=== PATIENT | male | born 1980 | race Two or more races ===

== ENCOUNTER 2019-09-22 17:32 | Emergency (ER) | payer OTHER ==
[2019-09-22 17:38] VITALS: BP 102/72; PULSE 62; TEMP 97.9; BMI 29.9
--- NOTE | 2019-09-22 17:40 | PDOC ---
Rapid Medical Evaluation Time Seen by Provider: 09/22/19 17:34 Medical Evaluation: 09/22/19 17:35 I performed a brief in-person evaluation of this patient. Pt is a 39 y/o male who presents to the ED with complaint of R knee pain for the last 2 weeks. He denies any known injury. He states he was standing outside and his knee gave out, causing severe R knee pain. The patient states he had an xray with his primary doctor 3 days ago. Pertinent physical exam findings: normal straight leg raise, EHL intact I have ordered the following: R knee xray Patient to proceed to ED for further evaluation. Discharge Disposition - Diagnosis Right knee pain - Referrals - Patient Instructions - Post Discharge Activity
[2019-09-22] MEDS ORDERED: KETOROLAC TROMETHAMINE 30 MG/1 ML VIAL IM ONE (18:27)
--- NOTE | 2019-09-22 18:28 | PDOC ---
History of Present Illness - General Chief Complaint: Injury Stated Complaint: PAIN/RIGHT PATELLA Time Seen by Provider: 09/22/19 17:34 History Source: Patient Exam Limitations: No Limitations - History of Present Illness Initial Comments: 09/22/19 19:21 CHIEF COMPLAINT: Knee pain HISTORY OF PRESENT ILLNESS: This is a 39-year-old male with a history of EtOH abuse (states he has cut back significantly to 3 glasses of wine daily), opiate abuse on methadone, hypertriglyceridemia, and pancreatitis resulting in multiple ICU admissions who presents complaining of two weeks of right knee pain. He does not remember any specific injury, but states that he is very active. He has been ambulating with a cane from home. Vital signs on arrival are unremarkable. REVIEW OF SYSTEMS: GENERAL/CONSTITUTIONAL: No fever or chills. No weakness. HEAD, EYES, EARS, NOSE AND THROAT: No change in vision. No change in hearing. No sore throat. CARDIOVASCULAR: Reports chest pain. No shortness of breath. RESPIRATORY: Denies cough, hemoptysis. MUSCULOSKELETAL: See HPI. SKIN: No rashes or lesions. NEUROLOGIC: No headache, vertigo, loss of consciousness, or change in strength/sensation. ALLERGIC/IMMUNOLOGIC: No hives or skin allergy. PHYSICAL EXAM: GENERAL: Awake, alert, and oriented to person/place/time, in no acute distress. HEAD: No signs of trauma, normocephalic, atraumatic. No epistaxis. EYES: PERRLA, EOMI, sclera anicteric, conjunctiva clear. LUNGS: No distress, speaks in full sentences, clear to auscultation bilaterally. HEART: Regular rate and rhythm, normal S1 and S2, no murmurs appreciated, peripheral pulses normal and equal bilaterally. ABDOMEN: Soft, nontender, normoactive bowel sounds. No guarding, no rebound. No masses. EXTREMITIES: Right knee with mild tenderness medially. Able to flex to 90 degrees. Able to straighten completely, although this causes pain. Negative anterior drawer sign. Able to bear partial weight. NEUROLOGICAL: Cranial nerves II through XII grossly intact. Normal speech, normal gait, no focal sensorimotor deficits. SKIN: Warm, dry, normal turgor. Past History - Medical History Allergies/Adverse Reactions: Allergies Allergy/AdvReac Type Severity Reaction Status Date / Time No Known Allergies Allergy Verified 09/22/19 17:35 Home Medications: Ambulatory Orders Mirtazapine 15 mg PO HS #30 tablet 04/17/19 Sertraline HCl [Zoloft -] 50 mg PO DAILY #30 tablet 04/17/19 Quetiapine Fumarate [Seroquel -] 50 mg PO HS #14 tablet 06/27/19 Sertraline HCl [Zoloft] 100 mg PO DAILY #30 tablet 06/27/19 hydrOXYzine PAMOATE [Vistaril -] 25 mg PO Q8H PRN #60 capsule 06/27/19 traZODone HCL [Trazodone HCl] 100 mg PO HS #30 tablet 06/27/19 Sertraline HCl [Zoloft -] 50 mg PO DAILY #21 tablet 07/25/19 Sertraline HCl [Zoloft] 100 mg PO DAILY #21 tablet 07/25/19 Trazodone HCl 150 mg PO HS #21 tablet 07/25/19 hydrOXYzine PAMOATE [Vistaril -] 50 mg PO BID PRN #42 capsule 07/25/19 Quetiapine Fumarate [Seroquel -] 100 mg PO HS #30 tablet 08/15/19 Sertraline HCl [Zoloft] 100 mg PO DAILY #60 tablet 08/15/19 hydrOXYzine PAMOATE [Vistaril -] 50 mg PO BID PRN #60 capsule 08/15/19 traZODone HCL [Trazodone HCl] 100 mg PO HS #30 tablet 08/15/19 Quetiapine Fumarate [Seroquel -] 50 mg PO HS #30 tablet 09/12/19 Quetiapine Fumarate [Seroquel -] 100 mg PO HS #30 tablet 09/12/19 Sertraline HCl [Zoloft] 100 mg PO DAILY #60 tablet 09/12/19 hydrOXYzine PAMOATE [Vistaril -] 50 mg PO BID #60 capsule 09/12/19 traZODone HCL [Trazodone HCl] 100 mg PO HS #30 tablet 09/12/19 - Psycho-Social/Smoking History Smoking History: Current every day smoker Have you smoked in the past 12 months: Yes Number of Cigarettes Smoked Daily: 20 Cigars Per Day: 0 Information on smoking cessation initiated: Yes - Substance Abuse Hx (Audit-C & DAST Scrn) How often the patient has a drink containing alcohol: 2-3 times / week Number of drinks the patient has on a typical day: 1 or 2 How often the patient has six or more drinks on one occasion: Never Score: In Men: 4 or > Positive; In Women: 3 or > Positive: 3 Screen Result (Pos requires Nsg. Audit-10AR): Negative In the last yr the pt used illegal drug/Rx for NonMed reason: No Score: Yes response is considered Positive: 0 Screen Result (Positive result requires Nsg. DAST-10): Negative *Physical Exam - Vital Signs Last Vital Signs Temp Pulse Resp BP Pulse Ox 97.9 F 62 18 102/72 100 09/22/19 17:35 09/22/19 17:35 09/22/19 17:35 09/22/19 17:35 09/22/19 17:35 Medical Decision Making - Medical Decision Making 09/22/19 19:25 A/P: 39-year-old male with knee pain. -XR wet read: no acute fracture or effusion -Toradol 30mg IM given without relief -2 tabs Percocet given with relief of pain -Knee immobilizer placed, crutches given -Orthopedics referral given -Followup instructions and return precautions reviewed Discharge - Discharge Information Problems reviewed: No Clinical Impression/Diagnosis: Right knee pain Condition: Stable Disposition: HOME - Admission No - Follow up/Referral Referrals: Anson Sutton MD [Primary Care Provider] - Myles Harding MD [Staff Physician] - 2 Days (Orthopedics) - Patient Discharge Instructions Additional Instructions: -Take ibuprofen 400mg every 6 hrs with food as needed for pain -Apply ice for 15 minutes at a time 5 times a day -Wear the immobilizer (you may remove it to shower and also to sleep if more comfortable) and use crutches to minimize weight-bearing -Rest with your knee elevated -Call orthopedics and request an appointment -Return here for any new or concerning symptoms - Post Discharge Activity
[2019-09-22] MEDS ORDERED: KETOROLAC TROMETHAMINE 30 MG/1 ML VIAL ONE (18:38)
== END 2019-09-22 19:26 | disposition home or self-care (01) ==
LOC: JERFT 17:32
PROC: 3E0233Z Introduction of Anti-inflammatory into Muscle, Percutaneous Approach (ICD-10-PCS; principal; 2019-09-22)
DX: M25.561 Pain in right knee (principal)
CPT/HCPCS: 73562-TC-RT-FY; 99284-25

== ENCOUNTER 2019-09-25 13:47 | Emergency (ER) | payer OTHER ==
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
[2019-09-25 14:05] VITALS: BP 111/78; PULSE 81; TEMP 97; BMI 29.9
[2019-09-25] MEDS ORDERED: KETOROLAC TROMETHAMINE 60 MG/2 ML VIAL IM ONE (14:08)
[2019-09-25] MEDS ORDERED: KETOROLAC TROMETHAMINE 60 MG/2 ML VIAL ONE (14:09)
--- NOTE | 2019-09-25 14:12 | PDOC ---
History of Present Illness - General Chief Complaint: Bone Injury Stated Complaint: REVISIT Time Seen by Provider: 09/25/19 13:54 - History of Present Illness Initial Comments: 09/25/19 14:09 39-year-old male presents for evaluation of right knee pain seen 2 weeks ago for similar problem he has yet to follow-up with subspecialist Past History - Medical History Allergies/Adverse Reactions: Allergies Allergy/AdvReac Type Severity Reaction Status Date / Time No Known Allergies Allergy Verified 09/25/19 13:53 Home Medications: Ambulatory Orders Mirtazapine 15 mg PO HS #30 tablet 04/17/19 Sertraline HCl [Zoloft -] 50 mg PO DAILY #30 tablet 04/17/19 Quetiapine Fumarate [Seroquel -] 50 mg PO HS #14 tablet 06/27/19 Sertraline HCl [Zoloft] 100 mg PO DAILY #30 tablet 06/27/19 hydrOXYzine PAMOATE [Vistaril -] 25 mg PO Q8H PRN #60 capsule 06/27/19 traZODone HCL [Trazodone HCl] 100 mg PO HS #30 tablet 06/27/19 Sertraline HCl [Zoloft -] 50 mg PO DAILY #21 tablet 07/25/19 Sertraline HCl [Zoloft] 100 mg PO DAILY #21 tablet 07/25/19 Trazodone HCl 150 mg PO HS #21 tablet 07/25/19 hydrOXYzine PAMOATE [Vistaril -] 50 mg PO BID PRN #42 capsule 07/25/19 Quetiapine Fumarate [Seroquel -] 100 mg PO HS #30 tablet 08/15/19 Sertraline HCl [Zoloft] 100 mg PO DAILY #60 tablet 08/15/19 hydrOXYzine PAMOATE [Vistaril -] 50 mg PO BID PRN #60 capsule 08/15/19 traZODone HCL [Trazodone HCl] 100 mg PO HS #30 tablet 08/15/19 Quetiapine Fumarate [Seroquel -] 50 mg PO HS #30 tablet 09/12/19 Quetiapine Fumarate [Seroquel -] 100 mg PO HS #30 tablet 09/12/19 Sertraline HCl [Zoloft] 100 mg PO DAILY #60 tablet 09/12/19 hydrOXYzine PAMOATE [Vistaril -] 50 mg PO BID #60 capsule 09/12/19 traZODone HCL [Trazodone HCl] 100 mg PO HS #30 tablet 09/12/19 COPD: No - Psycho-Social/Smoking History Smoking History: Current every day smoker Have you smoked in the past 12 months: Yes Number of Cigarettes Smoked Daily: 20 Cigars Per Day: 0 Information on smoking cessation initiated: No - Substance Abuse Hx (Audit-C & DAST Scrn) How often the patient has a drink containing alcohol: 2-3 times / week Number of drinks the patient has on a typical day: 3 or 4 How often the patient has six or more drinks on one occasion: Monthly Score: In Men: 4 or > Positive; In Women: 3 or > Positive: 6 Screen Result (Pos requires Nsg. Audit-10AR): Positive In the last yr the pt used illegal drug/Rx for NonMed reason: No Score: Yes response is considered Positive: 0 Screen Result (Positive result requires Nsg. DAST-10): Negative Review of Systems - Review of Systems Constitutional: No: Fever Musculoskeletal: Yes: Joint Pain *Physical Exam - Vital Signs Last Vital Signs Temp Pulse Resp BP Pulse Ox 97.0 F L 81 20 111/78 100 09/25/19 13:55 09/25/19 13:55 09/25/19 13:55 09/25/19 13:55 09/25/19 13:55 - Physical Exam 09/25/19 14:10 Right knee skin color and temperature normal range of motion is decreased 0 to 45 degrees beyond that causes pain. Minimal intra-articular effusion. Diffuse nonspecific tenderness at a proportion to the examination no instability or gross sensorimotor deficits normal hip and ankle range of motion thigh and calf soft nontender neurovascular intact Medical Decision Making - Medical Decision Making 09/25/19 14:10 Patient is requesting a shot of Toradol. We will give him orthopedic surgery follow-up most likely exacerbation of osteoarthritis. I have reviewed the pathophysiology with the patient. They are in agreement with the treatment plan all questions were answered to their satisfaction. Understanding for follow-up without fail was also conveyed to the patient. Again they are in agreement. Discharge - Discharge Information Problems reviewed: Yes Clinical Impression/Diagnosis: Right knee pain Condition: Stable Disposition: HOME - Admission No - Follow up/Referral Referrals: Anson Sutton MD [Primary Care Provider] - Jaya Roper DO [Staff Physician] - - Patient Discharge Instructions Additional Instructions: Tylenol Motrin as directed for pain. You were given an injection of a long- acting anti-inflammatory in the emergency room today. Do not take any anti- inflammatories until tomorrow at this time. You may continue to take Tylenol as directed. Return to the emergency room for worsening symptoms and without fail follow-up with orthopedic surgery in 1 to 2 days for further evaluation and treatment options. - Post Discharge Activity
== END 2019-09-25 14:18 | disposition home or self-care (01) ==
LOC: JER 13:47
PROC: 3E0233Z Introduction of Anti-inflammatory into Muscle, Percutaneous Approach (ICD-10-PCS; principal; 2019-09-25)
DX: M25.561 Pain in right knee (principal)
CPT/HCPCS: 99284-25

== ENCOUNTER 2021-01-19 08:46 | Inpatient (IN) | payer OTHER ==
[2021-01-19] MEDS ORDERED: ONDANSETRON *ODT* 4 MG TABLET SL PRN (09:18)
[2021-01-19] MEDS ORDERED: MAGNESIUM CITRATE 300 ML BOTTLE PO PRN (09:18)
[2021-01-19] MEDS ORDERED: diazePAM 5 MG TABLET PO PRN (09:18)
[2021-01-19] MEDS ORDERED: MAG HYDROX/AL HYDROX/SIMETH 30 ML UNIT-DOSE CUP PO PRN (09:18)
[2021-01-19] MEDS ORDERED: MAGNESIUM HYDROX 2400MG/30ML ORAL SUSPENSION 30 ML CUP PO PRN (09:18)
[2021-01-19] MEDS ORDERED: ACETAMINOPHEN 325 MG TABLET (FP) PO PRN ×2 (09:18)
[2021-01-19] MEDS ORDERED: MENTHOL/PHENOL 1 EACH UD MM PRN (09:18)
[2021-01-19] MEDS ORDERED: BISMUTH SUBSALICYLATE 524 MG/30 ML PO PRN (09:18)
[2021-01-19 09:25] VITALS: BMI 35.9
[2021-01-19] MEDS ORDERED: hydrOXYzine PAMOATE 25 MG CAPSULE (FP) PO SCH (10:00)
[2021-01-19] MEDS: PRENATAL VITAMINS W/ FOLIC ACID TABLET (FP) PO SCH (10:47)
[2021-01-19] MEDS: NICOTINE 14 MG/24 HOURS TOPICAL PATCH TD SCH (10:48)
[2021-01-19] MEDS: diazePAM 5 MG TABLET PO SCH ×3 (10:48→22:08)
[2021-01-19] MEDS: NICOTINE 10 MG CARTRIDGE (INHALER) IH PRN (10:48)
[2021-01-19 15:08] LABS: HEMATOCRIT 38.8 % (35.4-49); HEMOGLOBIN 13.3 GM/dL (11.7-16.9); MCH 34.9 pg (25.7-33.7); MCHC 34.2 g/dl (32.0-35.9); MEAN CELL VOLUME 101.9 fl (80-96); MEAN PLT VOLUME 7.9 fl (7.5-11.1); PLATELET COUNT 249 10^3/uL (134-434); RDW 13.6 % (11.9-15.9); WHITE BLOOD COUNT 8.4 K/mm3 (4.0-10.0)
[2021-01-19 16:03] LABS: CREATININE 0.9 mg/dL (0.55-1.3)
[2021-01-19 16:04] LABS: ALBUMIN 3.8 g/dl (3.4-5.0); BILIRUBIN,TOTAL 0.6 mg/dL (0.2-1); CALCIUM 8.4 mg/dL (8.5-10.1)
[2021-01-19 16:05] LABS: TOT PROT 7.8 g/dl (6.4-8.2)
[2021-01-19] MEDS: hydrOXYzine PAMOATE 50 MG CAPSULE (FP) PO PRN (17:48)
[2021-01-19] MEDS ORDERED: MELATONIN 5 MG TABLETS PO SCH (22:00)
[2021-01-19] MEDS: THIAMINE HCL 100 MG TABLET (FP) PO SCH (22:08)
[2021-01-19] MEDS: QUEtiapine FUMARATE 100 MG TABLET (FP) PO SCH (22:08)
[2021-01-20] MEDS: diazePAM 5 MG TABLET PO SCH ×4 (05:46→22:18)
[2021-01-20] MEDS: NICOTINE 10 MG CARTRIDGE (INHALER) IH PRN (05:48)
[2021-01-20] MEDS: hydrOXYzine PAMOATE 50 MG CAPSULE (FP) PO PRN ×3 (05:48→22:19)
[2021-01-20] MEDS ORDERED: methaDONE HCL 10 MG TABLET ONE (09:18)
[2021-01-20] MEDS ORDERED: methaDONE HCL 40 MG DISPERSABLE TABLET ONE (09:19)
[2021-01-20] MEDS ORDERED: methaDONE HCL 40 MG DISPERSABLE TABLET PO SCH (10:00)
[2021-01-20] MEDS ORDERED: methaDONE HCL 10 MG TABLET PO ONE (10:00)
[2021-01-20] MEDS: PRENATAL VITAMINS W/ FOLIC ACID TABLET (FP) PO SCH (10:19)
[2021-01-20] MEDS: NICOTINE 14 MG/24 HOURS TOPICAL PATCH TD SCH (10:19)
[2021-01-20] MEDS: THIAMINE HCL 100 MG TABLET (FP) PO SCH (22:18)
[2021-01-20] MEDS: QUEtiapine FUMARATE 100 MG TABLET (FP) PO SCH (22:18)
[2021-01-20] MEDS: METHOCARBAMOL 500 MG TABLET PO PRN (22:19)
[2021-01-21] MEDS ORDERED: methaDONE HCL 40 MG DISPERSABLE TABLET ONE (04:56)
[2021-01-21] MEDS ORDERED: methaDONE HCL 10 MG TABLET ONE (04:56)
[2021-01-21] MEDS: diazePAM 5 MG TABLET PO SCH ×3 (05:54→22:17)
[2021-01-21] MEDS: hydrOXYzine PAMOATE 50 MG CAPSULE (FP) PO PRN ×4 (05:56→22:17)
[2021-01-21] MEDS: NICOTINE 10 MG CARTRIDGE (INHALER) IH PRN (07:04)
[2021-01-21] MEDS: PRENATAL VITAMINS W/ FOLIC ACID TABLET (FP) PO SCH (10:16)
[2021-01-21] MEDS: NICOTINE 14 MG/24 HOURS TOPICAL PATCH TD SCH (10:17)
[2021-01-21] MEDS: IBUPROFEN 400 MG TABLET (FP) PO PRN (20:03)
[2021-01-21] MEDS: QUEtiapine FUMARATE 100 MG TABLET (FP) PO SCH (22:17)
[2021-01-21] MEDS: METHOCARBAMOL 500 MG TABLET PO PRN (22:17)
[2021-01-21] MEDS: THIAMINE HCL 100 MG TABLET (FP) PO SCH (22:17)
[2021-01-22] MEDS ORDERED: methaDONE HCL 10 MG TABLET ONE (04:11)
[2021-01-22] MEDS ORDERED: methaDONE HCL 40 MG DISPERSABLE TABLET ONE (04:12)
[2021-01-22] MEDS ORDERED: diazePAM 5 MG TABLET PO SCH (06:00)
[2021-01-22 06:14] VITALS: PULSE 85
[2021-01-22] MEDS: IBUPROFEN 400 MG TABLET (FP) PO PRN (06:27)
[2021-01-22] MEDS: hydrOXYzine PAMOATE 50 MG CAPSULE (FP) PO PRN (06:30)
[2021-01-22 10:19] VITALS: BP 115/70; TEMP 97.1
[2021-01-22] MEDS: NICOTINE 14 MG/24 HOURS TOPICAL PATCH TD SCH (10:26)
[2021-01-22] MEDS: METHOCARBAMOL 500 MG TABLET PO PRN (10:26)
[2021-01-22] MEDS: PRENATAL VITAMINS W/ FOLIC ACID TABLET (FP) PO SCH (10:26)
[2021-01-23] MEDS ORDERED: diazePAM 5 MG TABLET PO ONE (06:00)
== END 2021-01-22 11:16 | disposition home or self-care (01) | DRG 775 ==
LOC: YASAS 08:46 → Y6N 09:53
PROVIDERS: ADMIT Allergy & Immunology; ATTEND Allergy & Immunology
PROC: HZ2ZZZZ Detoxification Services for Substance Abuse Treatment (ICD-10-PCS; principal; 2021-01-19)
DX: F10.230 Alcohol dependence with withdrawal, uncomplicated (principal); F10.24 Alcohol dependence with alcohol-induced mood disorder; F10.282 Alcohol dependence with alcohol-induced sleep disorder; F10.280 Alcohol dependence with alcohol-induced anxiety disorder; F17.210 Nicotine dependence, cigarettes, uncomplicated; F43.10 Post-traumatic stress disorder, unspecified; F41.9 Anxiety disorder, unspecified; F32.A Depression, unspecified; E78.5 Hyperlipidemia, unspecified; R74.01 Elevation of levels of liver transaminase levels; Z86.69 Personal history of other diseases of the nervous system and sense organs
CPT/HCPCS: 36415; 80053; 85027; 86780; C9803; U0003; U0005

== ENCOUNTER 2021-03-11 17:12 | Inpatient (IN) | payer OTHER ==
[2021-03-11] MEDS ORDERED: MAGNESIUM CITRATE 300 ML BOTTLE PO PRN (20:22)
[2021-03-11] MEDS ORDERED: IBUPROFEN 400 MG TABLET (FP) PO PRN (20:22)
[2021-03-11] MEDS ORDERED: MAG HYDROX/AL HYDROX/SIMETH 30 ML UNIT-DOSE CUP PO PRN (20:22)
[2021-03-11] MEDS ORDERED: MENTHOL/PHENOL 1 EACH UD MM PRN (20:22)
[2021-03-11] MEDS ORDERED: ACETAMINOPHEN 325 MG TABLET (FP) PO PRN ×2 (20:22)
[2021-03-11] MEDS ORDERED: BISMUTH SUBSALICYLATE 524 MG/30 ML PO PRN (20:22)
[2021-03-11] MEDS ORDERED: MAGNESIUM HYDROX 2400MG/30ML ORAL SUSPENSION 30 ML CUP PO PRN (20:22)
[2021-03-11] MEDS ORDERED: ONDANSETRON *ODT* 4 MG TABLET SL PRN (20:22)
[2021-03-12] MEDS: THIAMINE HCL 100 MG TABLET (FP) PO SCH ×2 (05:41→22:21)
[2021-03-12] MEDS: MELATONIN 5 MG TABLETS PO SCH ×2 (05:41→22:21)
[2021-03-12] MEDS: diazePAM 5 MG TABLET PO SCH ×5 (05:42→22:22)
[2021-03-12] MEDS ORDERED: diazePAM 5 MG TABLET ONE (05:43)
[2021-03-12 08:53] VITALS: BMI 35.5
[2021-03-12] MEDS ORDERED: methaDONE HCL 10 MG TABLET PO SCH (09:30)
[2021-03-12] MEDS ORDERED: methaDONE HCL 40 MG DISPERSABLE TABLET ONE (09:56)
[2021-03-12] MEDS ORDERED: methaDONE HCL 10 MG TABLET ONE (09:56)
[2021-03-12 10:36] LABS: HEMATOCRIT 41.6 % (35.4-49); HEMOGLOBIN 13.7 GM/dL (11.7-16.9); MCH 33.9 pg (25.7-33.7); MEAN CELL VOLUME 102.8 fl (80-96); MEAN PLT VOLUME 8.3 fl (7.5-11.1); PLATELET COUNT 212 10^3/uL (134-434); RBC 4.04 M/mm3 (4.00-5.60); RDW 14.2 % (11.9-15.9); WHITE BLOOD COUNT 7.8 K/mm3 (4.0-10.0)
[2021-03-12] MEDS: PRENATAL VITAMINS W/ FOLIC ACID TABLET (FP) PO SCH (10:36)
[2021-03-12 10:38] LABS: ALBUMIN 3.8 g/dl (3.4-5.0); BLOOD UREA NITROGEN 8.8 mg/dL (7-18); CALCIUM 8.8 mg/dL (8.5-10.1)
[2021-03-12 10:41] LABS: CREATININE 0.9 mg/dL (0.55-1.3)
[2021-03-12 10:44] LABS: BILIRUBIN,TOTAL 1.2 mg/dL (0.2-1)
[2021-03-12] MEDS: diazePAM 5 MG TABLET PO PRN (14:11)
[2021-03-12] MEDS: hydrOXYzine PAMOATE 25 MG CAPSULE (FP) PO PRN ×2 (14:12→22:22)
[2021-03-12] MEDS: NICOTINE POLACRILEX 2 MG GUM BUC PRN ×2 (15:56→23:08)
[2021-03-12] MEDS: METHOCARBAMOL 500 MG TABLET PO PRN (17:39)
[2021-03-12] MEDS: QUEtiapine FUMARATE 100 MG TABLET (FP) PO SCH (22:21)
[2021-03-13] MEDS ORDERED: methaDONE HCL 40 MG DISPERSABLE TABLET ONE (04:41)
[2021-03-13] MEDS ORDERED: methaDONE HCL 10 MG TABLET ONE (04:41)
[2021-03-13] MEDS: diazePAM 5 MG TABLET PO SCH ×3 (06:10→22:06)
[2021-03-13] MEDS: PRENATAL VITAMINS W/ FOLIC ACID TABLET (FP) PO SCH (10:13)
[2021-03-13] MEDS: hydrOXYzine PAMOATE 25 MG CAPSULE (FP) PO PRN (10:13)
[2021-03-13] MEDS: METHOCARBAMOL 500 MG TABLET PO PRN ×2 (10:16→22:05)
[2021-03-13] MEDS: NICOTINE 10 MG CARTRIDGE (INHALER) IH PRN (11:00)
[2021-03-13] MEDS: THIAMINE HCL 100 MG TABLET (FP) PO SCH (22:05)
[2021-03-13] MEDS: MELATONIN 5 MG TABLETS PO SCH (22:05)
[2021-03-13] MEDS: QUEtiapine FUMARATE 100 MG TABLET (FP) PO SCH (22:06)
[2021-03-14] MEDS ORDERED: methaDONE HCL 10 MG TABLET ONE (04:23)
[2021-03-14] MEDS ORDERED: methaDONE HCL 40 MG DISPERSABLE TABLET ONE (04:24)
[2021-03-14] MEDS: diazePAM 5 MG TABLET PO SCH ×2 (05:44→17:52)
[2021-03-14] MEDS: NICOTINE 10 MG CARTRIDGE (INHALER) IH PRN (05:45)
[2021-03-14] MEDS: METHOCARBAMOL 500 MG TABLET PO PRN ×2 (07:40→17:54)
[2021-03-14] MEDS: diazePAM 5 MG TABLET PO PRN (10:31)
[2021-03-14] MEDS: PRENATAL VITAMINS W/ FOLIC ACID TABLET (FP) PO SCH (10:32)
[2021-03-14] MEDS: hydrOXYzine PAMOATE 25 MG CAPSULE (FP) PO PRN ×2 (10:33→22:12)
[2021-03-14] MEDS: THIAMINE HCL 100 MG TABLET (FP) PO SCH (22:12)
[2021-03-14] MEDS: QUEtiapine FUMARATE 100 MG TABLET (FP) PO SCH (22:12)
[2021-03-14] MEDS: MELATONIN 5 MG TABLETS PO SCH (22:12)
[2021-03-15] MEDS ORDERED: methaDONE HCL 40 MG DISPERSABLE TABLET ONE (04:22)
[2021-03-15] MEDS ORDERED: methaDONE HCL 10 MG TABLET ONE (04:22)
[2021-03-15] MEDS ORDERED: diazePAM 5 MG TABLET PO ONE (06:00)
[2021-03-15 09:11] VITALS: BP 116/67; PULSE 72; TEMP 96.9
== END 2021-03-15 09:35 | disposition home or self-care (01) | DRG 773 ==
LOC: YASAS 17:12 → Y3N 03-12 09:21
PROVIDERS: ADMIT Allergy & Immunology; ATTEND Allergy & Immunology
PROC: HZ2ZZZZ Detoxification Services for Substance Abuse Treatment (ICD-10-PCS; principal; 2021-03-12)
DX: F10.230 Alcohol dependence with withdrawal, uncomplicated (principal); F11.20 Opioid dependence, uncomplicated; F17.210 Nicotine dependence, cigarettes, uncomplicated
CPT/HCPCS: 36415; 80053; 85027; 86780; C9803; U0003; U0005

== ENCOUNTER 2022-05-03 11:45 | Inpatient (IN) | payer OTHER ==
[2022-05-03 12:19] VITALS: BMI 35.5
[2022-05-03] MEDS ORDERED: methaDONE HCL 10 MG TABLET (FOR DETOX USE ONLY) PO ONE (12:32)
[2022-05-03] MEDS ORDERED: methaDONE HCL 40 MG DISPERSABLE TABLET ONE (12:40)
[2022-05-03] MEDS ORDERED: methaDONE HCL 10 MG TABLET ONE (12:40)
[2022-05-03] MEDS ORDERED: SODIUM CHLORIDE 0.9% 1000 ML INFUS.BAG IV ONE (12:42)
[2022-05-03 13:07] LABS: BASO % 0.9 % (0-2.0); EOS % 1.1 % (0-4.5); HEMATOCRIT 32.3 % (35.4-49); LYMPH % 17.5 % (8-40); MCH 34.2 pg (25.7-33.7); MCHC 34.2 g/dl (32.0-35.9); MEAN CELL VOLUME 100.2 fl (80-96); MEAN PLT VOLUME 8.2 fl (7.5-11.1); MONO % 10.5 % (3.8-10.2); PLATELET COUNT 187 10^3/uL (134-434); RBC 3.22 M/mm3 (4.00-5.60); RDW 16.5 % (11.9-15.9); WHITE BLOOD COUNT 12.7 K/mm3 (4.0-10.0)
[2022-05-03 13:12] LABS: INR 1.46 (0.83-1.09); PROTHROMBIN TIME (PATIENT) 16.9 SEC (9.7-13.0)
[2022-05-03 13:15] LABS: ACTIVATED PTT 34.6 SECONDS (25.2-36.5)
[2022-05-03 13:26] LABS: ALBUMIN 2.9 g/dl (3.4-5.0)
[2022-05-03 13:27] LABS: CALCIUM 7.9 mg/dL (8.5-10.1); MAGNESIUM 1.5 mg/dL (1.8-2.4)
[2022-05-03 13:29] LABS: CREATININE 0.8 mg/dL (0.55-1.3)
[2022-05-03 13:31] LABS: TOT PROT 7.6 g/dl (6.4-8.2)
[2022-05-03] MEDS ORDERED: SODIUM CHLORIDE 1,000 ML IV STA (14:09)
[2022-05-03] MEDS ORDERED: ACETAMINOPHEN 1000 MG/100 ML BAG IVPB ONE (19:27)
[2022-05-03] MEDS ORDERED: ACETAMINOPHEN INJECTION 100 ML IVPB ONE (19:35)
[2022-05-04] MEDS ORDERED: KETOROLAC TROMETHAMINE 15 MG/ML VIAL ONE
[2022-05-04] MEDS: KETOROLAC TROMETHAMINE 15 MG/ML VIAL IVPUSH PRN ×3 (00:06→22:04)
[2022-05-04] MEDS: LACTATED RINGERS SOLUTION 1,000 ML/1,000 ML INFUS.BAG IV SCH ×3 (00:06→17:15)
[2022-05-04 02:22] VITALS: RESP 18
[2022-05-04] MEDS ORDERED: LORazepam 1 MG TABLET PO PRN (03:38)
[2022-05-04 05:22] LABS: BILIRUBIN,DIRECT 4.1 mg/dL (0.0-0.2)
[2022-05-04] MEDS: LORazepam 1 MG TABLET PO SCH ×2 (05:25→11:05)
[2022-05-04 09:22] LABS: BASO % 0.7 % (0-2.0); EOS % 2.5 % (0-4.5); HEMATOCRIT 25.3 % (35.4-49); HEMOGLOBIN 8.9 GM/dL (11.7-16.9); LYMPH % 22.9 % (8-40); MCH 36.3 pg (25.7-33.7); MCHC 35.3 g/dl (32.0-35.9); MEAN CELL VOLUME 102.9 fl (80-96); MONO % 10.2 % (3.8-10.2); NEUT % 63.7 % (42.8-82.8); PLATELET COUNT 130 10^3/uL (134-434); RBC 2.46 M/mm3 (4.00-5.60); RDW 16.3 % (11.9-15.9); WHITE BLOOD COUNT 9.9 K/mm3 (4.0-10.0)
[2022-05-04 10:07] LABS: BLOOD UREA NITROGEN 5.1 mg/dL (7-18)
[2022-05-04 10:10] LABS: CREATININE 0.2 mg/dL (0.55-1.3); PHOSPHOROUS 1.6 mg/dL (2.5-4.9)
[2022-05-04 10:48] LABS: CALCIUM 7.2 mg/dL (8.5-10.1); MAGNESIUM 1.3 mg/dL (1.8-2.4); TOT PROT 5.4 g/dl (6.4-8.2)
[2022-05-04] MEDS: FOLIC ACID 1 MG TABLET (FP) PO SCH (11:08)
[2022-05-04] MEDS: THIAMINE HCL 100 MG TABLET (FP) PO SCH (11:08)
[2022-05-05] MEDS ORDERED: LORazepam 1 MG TABLET PO SCH (05:00)
[2022-05-05] MEDS: KETOROLAC TROMETHAMINE 15 MG/ML VIAL IVPUSH PRN ×2 (05:05→11:29)
[2022-05-05] MEDS: LACTATED RINGERS SOLUTION 1,000 ML/1,000 ML INFUS.BAG IV SCH (05:58)
[2022-05-05 10:49] VITALS: BP 119/78; PULSE 91; TEMP 98.7
[2022-05-05] MEDS: FOLIC ACID 1 MG TABLET (FP) PO SCH (10:53)
[2022-05-05] MEDS: THIAMINE HCL 100 MG TABLET (FP) PO SCH (10:53)
[2022-05-06] MEDS ORDERED: LORazepam 0.5 MG TABLET PO PRN
[2022-05-06] MEDS ORDERED: LORazepam 0.5 MG TABLET PO SCH (05:00)
[2022-05-07] MEDS ORDERED: LORazepam 0.5 MG TABLET PO ONE (05:00)
== END 2022-05-05 13:51 | disposition left against medical advice (07) | DRG 351 ==
LOC: JER 11:45 → JERBED 19:02 → J5S 05-04 01:11
PROVIDERS: ADMIT Internal Medicine; ATTEND Internal Medicine
DX: T79.6XXA Traumatic ischemia of muscle, initial encounter (principal); S22.42XA Multiple fractures of ribs, left side, initial encounter for closed fracture; F11.20 Opioid dependence, uncomplicated; Q60.0 Renal agenesis, unilateral; K70.0 Alcoholic fatty liver; D64.9 Anemia, unspecified; F10.10 Alcohol abuse, uncomplicated; S30.810A Abrasion of lower back and pelvis, initial encounter; S40.021A Contusion of right upper arm, initial encounter; K70.10 Alcoholic hepatitis without ascites; J98.11 Atelectasis; E66.9 Obesity, unspecified; Z68.35 Body mass index [BMI] 35.0-35.9, adult; F17.210 Nicotine dependence, cigarettes, uncomplicated; E83.42 Hypomagnesemia; R16.2 Hepatomegaly with splenomegaly, not elsewhere classified; S90.31XA Contusion of right foot, initial encounter; V89.2XXA Person injured in unspecified motor-vehicle accident, traffic, initial encounter; Y92.414 Local residential or business street as the place of occurrence of the external cause
CPT/HCPCS: 0241U-QW; 36415; 71045-TC-FY; 71260-TC; 73610-TC-RT-FY; 73630-TC-RT-FY; 74177-TC; 80053; 80307; 82105; 82248; 82550; 82553; 82607; 82728; 82746; 83615; 83735; 84100; 84484; 85025; 85610; 85730; 86705; 86803; 86850; 86900; 86901; 87340; 87517; 87522; 93005; 93010; 99285-25; C9803-CS; Q9967; U0003; U0005

== ENCOUNTER 2022-05-06 06:28 | Inpatient (IN) | payer OTHER ==
[2022-05-06 06:41] VITALS: BMI 35.5
[2022-05-06] MEDS ORDERED: ACETAMINOPHEN 1000 MG/100 ML BAG IVPB ONE (08:11)
[2022-05-06] MEDS ORDERED: SODIUM CHLORIDE 0.9% 500 ML INFUS.BAG IV ONE (08:11)
[2022-05-06] MEDS ORDERED: ACETAMINOPHEN INJECTION 100 ML IVPB ONE (08:49)
[2022-05-06 09:18] LABS: BASO % 0.9 % (0-2.0); EOS % 1.8 % (0-4.5); HEMATOCRIT 30.8 % (35.4-49); HEMOGLOBIN 10.6 GM/dL (11.7-16.9); LYMPH % 26.7 % (8-40); MCH 34.7 pg (25.7-33.7); MCHC 34.3 g/dl (32.0-35.9); MEAN CELL VOLUME 100.9 fl (80-96); MEAN PLT VOLUME 7.3 fl (7.5-11.1); MONO % 11.9 % (3.8-10.2); NEUT % 58.7 % (42.8-82.8); PLATELET COUNT 197 10^3/uL (134-434); RBC 3.05 M/mm3 (4.00-5.60); RDW 16.8 % (11.9-15.9); WHITE BLOOD COUNT 11.5 K/mm3 (4.0-10.0)
[2022-05-06 09:25] LABS: PH,URINE 6.5 (5.0-8.0); URINE APPEARANCE CLEAR; URINE BILIRUBIN 1+ (NEGATIVE); URINE COLOR DK YELLOW; URINE GLUCOSE (UA) NEGATIVE (NEGATIVE); URINE KETONE NEGATIVE (NEGATIVE); URINE LEUK ESTERASE NEGATIVE (NEGATIVE); URINE NITRITE NEGATIVE (NEGATIVE); URINE PROTEIN NEGATIVE (NEGATIVE)
[2022-05-06 09:46] LABS: CALCIUM 7.9 mg/dL (8.5-10.1)
[2022-05-06 09:47] LABS: BLOOD UREA NITROGEN 3.9 mg/dL (7-18)
[2022-05-06 09:49] LABS: CREATININE 0.8 mg/dL (0.55-1.3)
[2022-05-06 09:51] LABS: TOT PROT 7.4 g/dl (6.4-8.2)
[2022-05-06 09:52] LABS: BILIRUBIN,TOTAL 3.9 mg/dL (0.2-1)
[2022-05-06 10:31] LABS: ALBUMIN 2.9 g/dl (3.4-5.0)
[2022-05-06] MEDS ORDERED: PIPERACILLIN/TAZOB 4.5 GM 4.5 GM in DEXTROSE 5%-WATER 100 ML IVPB ONE (16:38)
[2022-05-06] MEDS ORDERED: PIPERACILLIN/TAZOB 4.5 GM 4.5 GM/100 ML BAG IVPB ONE (17:03)
[2022-05-06] MEDS ORDERED: LACTATED RINGERS SOLUTION 1,000 ML/1,000 ML INFUS.BAG IV SCH (19:30)
[2022-05-06 20:53] LABS: RETICULOCYTES 2.28 % (0.5-1.5)
[2022-05-06] MEDS ORDERED: LORazepam 1 MG TABLET PO PRN (21:14)
[2022-05-06 22:42] LABS: ANISOCYTOSIS 2+; MACROCYTOSIS 1+
[2022-05-06] MEDS: KETOROLAC TROMETHAMINE 15 MG/ML VIAL IVPUSH PRN (23:49)
[2022-05-07 01:01] VITALS: RESP 18
[2022-05-07] MEDS: LACTATED RINGERS SOLUTION 1,000 ML/1,000 ML INFUS.BAG IV SCH ×2 (03:14→06:37)
[2022-05-07] MEDS: AMPICILLIN NA/SULBACTAM NA 1.5 GM in SODIUM CHLORIDE 100 ML IVPB SCH ×2 (03:36)
[2022-05-07] MEDS ORDERED: ACETAMINOPHEN 325 MG TABLET (FP) PO PRN (06:01)
[2022-05-07] MEDS ORDERED: clonazePAM 0.5 MG TABLET PO PRN (06:31)
[2022-05-07] MEDS ORDERED: PHYTONADIONE 10 MG/1 ML AMP IVPB ONE (08:30)
[2022-05-07 08:47] LABS: INR 1.48 (0.83-1.09); PROTHROMBIN TIME (PATIENT) 17.1 SEC (9.7-13.0)
[2022-05-07 08:50] LABS: HEMATOCRIT 31.7 % (35.4-49); HEMOGLOBIN 10.8 GM/dL (11.7-16.9); MCH 35.7 pg (25.7-33.7); MCHC 34.2 g/dl (32.0-35.9); MEAN CELL VOLUME 104.3 fl (80-96); MEAN PLT VOLUME 7.7 fl (7.5-11.1); PLATELET COUNT 228 10^3/uL (134-434); RBC 3.04 M/mm3 (4.00-5.60); RDW 16.8 % (11.9-15.9); WHITE BLOOD COUNT 9.1 K/mm3 (4.0-10.0)
[2022-05-07 09:15] LABS: CALCIUM 7.8 mg/dL (8.5-10.1)
[2022-05-07 09:16] LABS: ALBUMIN 2.8 g/dl (3.4-5.0); BLOOD UREA NITROGEN 7.1 mg/dL (7-18); MAGNESIUM 1.6 mg/dL (1.8-2.4)
[2022-05-07 09:19] LABS: CREATININE 0.7 mg/dL (0.55-1.3); PHOSPHOROUS 3.7 mg/dL (2.5-4.9)
[2022-05-07 09:20] LABS: BILIRUBIN,TOTAL 4.3 mg/dL (0.2-1); TOT PROT 7.1 g/dl (6.4-8.2)
[2022-05-07] MEDS ORDERED: FOLIC ACID 1 MG TABLET (FP) PO SCH (10:00)
[2022-05-07] MEDS ORDERED: CYANOCOBALAMIN 1,000 MCG TABLET (FP) PO SCH (10:00)
[2022-05-07] MEDS ORDERED: CYANOCOBALAMIN (VITAMIN B-12) 100 MCG TABLET PO SCH (10:00)
[2022-05-07] MEDS ORDERED: ENOXAPARIN NA (PORCINE) 40 MG/0.4 ML DISP.SYRIN SQ SCH (10:00)
[2022-05-07] MEDS ORDERED: PARoxetine HCL 10 MG TABLET PO SCH (10:00)
[2022-05-07] MEDS ORDERED: methaDONE HCL 40 MG DISPERSABLE TABLET PO SCH (10:00)
[2022-05-07] MEDS ORDERED: PIPERACILLIN/TAZOB 3.375 GM 3.375 GM in DEXTROSE 5%-WATER - 50 ML IVPB SCH (10:00)
[2022-05-07] MEDS ORDERED: THIAMINE HCL 100 MG TABLET (FP) PO SCH (10:00)
[2022-05-07] MEDS: KETOROLAC TROMETHAMINE 15 MG/ML VIAL IVPUSH PRN ×2 (10:33→16:54)
[2022-05-07 14:52] VITALS: BP 126/76; PULSE 75; TEMP 97.7
[2022-05-07] MEDS ORDERED: QUEtiapine FUMARATE 200 MG TABLET PO SCH (22:00)
[2022-05-07] MEDS ORDERED: traZODone HCL 100 MG TABLET (FP) PO SCH (22:00)
== END 2022-05-07 17:59 | disposition left against medical advice (07) ==
LOC: JER 06:28 → JERBED 16:36 → J6S 23:13
PROVIDERS: ADMIT Internal Medicine; ATTEND Internal Medicine
DX: K82.8 Other specified diseases of gallbladder (principal); K70.10 Alcoholic hepatitis without ascites; K81.9 Cholecystitis, unspecified; F43.10 Post-traumatic stress disorder, unspecified; F41.8 Other specified anxiety disorders; F10.239 Alcohol dependence with withdrawal, unspecified; D72.829 Elevated white blood cell count, unspecified; R07.89 Other chest pain; D57.3 Sickle-cell trait; D53.9 Nutritional anemia, unspecified; E78.1 Pure hyperglyceridemia; K70.30 Alcoholic cirrhosis of liver without ascites; M62.82 Rhabdomyolysis; R16.2 Hepatomegaly with splenomegaly, not elsewhere classified; K76.0 Fatty (change of) liver, not elsewhere classified; Q63.9 Congenital malformation of kidney, unspecified; S22.41XA Multiple fractures of ribs, right side, initial encounter for closed fracture; V98.8XXA Other specified transport accidents, initial encounter; Y93.89 Activity, other specified
CPT/HCPCS: 0241U-QW; 36415; 70450-TC; 72125-TC; 73200-TC-RT; 74177-TC; 74181-TC; 76705-TC; 80053; 80061; 80307; 81003; 82248; 82550; 82553; 82607; 82746; 83540; 83550; 83690; 83735; 84100; 84484; 85025; 85027; 85045; 85610; 87086; 93005; 93010; 99285-25; Q9967

== ENCOUNTER 2022-05-08 10:25 | Emergency (ER) | payer OTHER ==
[2022-05-08 10:51] VITALS: BP 121/74; PULSE 100; RESP 20; TEMP 97.8; BMI 35.5
[2022-05-08] MEDS ORDERED: LIDOCAINE 5% TOPICAL PATCH TP ONE (12:05)
[2022-05-08] MEDS ORDERED: KETOROLAC TROMETHAMINE 15 MG/ML VIAL IM ONE (12:05)
[2022-05-08] MEDS ORDERED: LIDOCAINE 5% TOPICAL PATCH ONE (12:11)
[2022-05-08] MEDS ORDERED: KETOROLAC TROMETHAMINE 15 MG/ML VIAL ONE (12:12)
== END 2022-05-08 12:45 | disposition home or self-care (01) ==
LOC: JER 10:25
PROC: 3E0233Z Introduction of Anti-inflammatory into Muscle, Percutaneous Approach (ICD-10-PCS; principal; 2022-05-08)
DX: R07.81 Pleurodynia (principal)
CPT/HCPCS: 99284-25

== ENCOUNTER 2022-06-03 21:12 | Inpatient (IN) | payer OTHER ==
[2022-06-03] MEDS ORDERED: ACETAMINOPHEN 1000 MG/100 ML BAG IVPB ONE (22:07)
[2022-06-03] MEDS ORDERED: FAMOTIDINE 20 MG/50 ML IVPB 20 MG/50 ML MG IVPB ONE ×2 (22:07→23:04)
[2022-06-03] MEDS ORDERED: ONDANSETRON 4 MG/2 ML VIAL IVPUSH ONE (22:07)
[2022-06-03] MEDS ORDERED: SODIUM CHLORIDE 0.9% 1000 ML INFUS.BAG IV ONE (22:07)
[2022-06-03 22:31] LABS: BASO % 0.5 % (0-2.0); HEMOGLOBIN 11.5 GM/dL (11.7-16.9); LYMPH % 33.3 % (8-40); MCHC 33.8 g/dl (32.0-35.9); MEAN CELL VOLUME 100.7 fl (80-96); MEAN PLT VOLUME 7.3 fl (7.5-11.1); MONO % 8.7 % (3.8-10.2); NEUT % 56.5 % (42.8-82.8); PLATELET COUNT 294 10^3/uL (134-434); RBC 3.37 M/mm3 (4.00-5.60); RDW 13.8 % (11.9-15.9); WHITE BLOOD COUNT 11.6 K/mm3 (4.0-10.0)
[2022-06-03 22:51] LABS: CALCIUM 8.3 mg/dL (8.5-10.1)
[2022-06-03 22:53] LABS: ALBUMIN 2.8 g/dl (3.4-5.0); BLOOD UREA NITROGEN 6.8 mg/dL (7-18); MAGNESIUM 1.8 mg/dL (1.8-2.4)
[2022-06-03 22:57] LABS: BILIRUBIN,TOTAL 1.1 mg/dL (0.2-1); TOT PROT 8.7 g/dl (6.4-8.2)
[2022-06-03 23:01] LABS: LACTIC ACID 2.4 mmol/L (0.4-2.0)
[2022-06-03] MEDS ORDERED: ONDANSETRON 4 MG/2 ML VIAL ONE (23:04)
[2022-06-03] MEDS ORDERED: ACETAMINOPHEN INJECTION 100 ML IVPB ONE (23:04)
[2022-06-03] MEDS ORDERED: KETOROLAC TROMETHAMINE 15 MG/ML VIAL IVPUSH ONE (23:18)
[2022-06-03] MEDS ORDERED: KETOROLAC TROMETHAMINE 15 MG/ML VIAL ONE (23:50)
[2022-06-03] MEDS ORDERED: KCL 10 MEQ IVPB 10 MEQ/100 ML INFUS.BAG IVPB ONE (23:50)
[2022-06-04] MEDS: KCL 10 MEQ IVPB 10 MEQ/100 ML INFUS.BAG IVPB SCH ×3 (00:22→03:46)
[2022-06-04] MEDS ORDERED: KCL 10 MEQ IVPB 10 MEQ/100 ML INFUS.BAG IVPB ONE ×2 (00:23→03:01)
[2022-06-04] MEDS ORDERED: morphine SULFATE 4 MG/ML VIAL IVPUSH ONE (00:39)
[2022-06-04] MEDS ORDERED: SODIUM CHLORIDE 0.9% 500 ML INFUS.BAG IV ONE (00:39)
[2022-06-04] MEDS ORDERED: morphine SULFATE 4 MG/ML VIAL ONE (00:41)
[2022-06-04 05:55] VITALS: BMI 31.8
[2022-06-04 06:39] LABS: LACTIC ACID 2.4 mmol/L (0.4-2.0)
[2022-06-04] MEDS ORDERED: SODIUM CHLORIDE 1,000 ML IV SCH (07:00)
[2022-06-04] MEDS ORDERED: morphine SULFATE 4 MG/ML VIAL IVPUSH PRN (07:57)
[2022-06-04] MEDS ORDERED: ENOXAPARIN NA (PORCINE) 40 MG/0.4 ML DISP.SYRIN SQ SCH (10:00)
[2022-06-04 10:19] LABS: HEMATOCRIT 32.2 % (35.4-49); HEMOGLOBIN 11.2 GM/dL (11.7-16.9); MCH 34.9 pg (25.7-33.7); MCHC 34.8 g/dl (32.0-35.9); MEAN CELL VOLUME 100.4 fl (80-96); MEAN PLT VOLUME 7.2 fl (7.5-11.1); PLATELET COUNT 255 10^3/uL (134-434); RDW 13.9 % (11.9-15.9); WHITE BLOOD COUNT 7.9 K/mm3 (4.0-10.0)
[2022-06-04 10:31] LABS: CALCIUM 7.6 mg/dL (8.5-10.1)
[2022-06-04 10:32] LABS: MAGNESIUM 1.6 mg/dL (1.8-2.4)
[2022-06-04 10:35] LABS: ALBUMIN 2.5 g/dl (3.4-5.0); BLOOD UREA NITROGEN 7.3 mg/dL (7-18); PHOSPHOROUS 3.2 mg/dL (2.5-4.9)
[2022-06-04 10:37] LABS: BILIRUBIN,TOTAL 1.1 mg/dL (0.2-1); TOT PROT 7.8 g/dl (6.4-8.2)
[2022-06-04 13:10] LABS: INR 1.48 (0.83-1.09); PROTHROMBIN TIME (PATIENT) 17.1 SEC (9.7-13.0)
[2022-06-04] MEDS ORDERED: FOLIC ACID INJECTION - 1 MG, THIAMINE HCL 100 MG, MULTIVIT INJECTION ADULT 10 ML in SOD... IVPB ONE (13:18)
[2022-06-04] MEDS: chlordiazePOXIDE HCL 25 MG CAPSULE PO SCH ×3 (13:39→23:01)
[2022-06-04] MEDS: chlordiazePOXIDE HCL 25 MG CAPSULE PO PRN ×2 (16:08→21:35)
[2022-06-04] MEDS ORDERED: diphenhydrAMINE HCL 25 MG CAPSULE (FP) PO ONE (16:53)
[2022-06-04 17:14] LABS: COCAINE, UR NEGATIVE (NEGATIVE); METHADONE, UR NEGATIVE (NEGATIVE); PHENCYCLIDINE,URINE NEGATIVE (NEGATIVE); URINE BARBITURATES NEGATIVE (NEGATIVE)
[2022-06-04 17:19] LABS: OPIATES, URI POSITIVE (NEGATIVE); URINE AMPHETAMINES NEGATIVE (NEGATIVE); URINE BENZODIAZEPINES POSITIVE (NEGATIVE)
[2022-06-04] MEDS: D5-1/2NS+20 MEQ KCL - 20 MEQ/1,000 ML INFUS.BAG IV SCH (18:17)
[2022-06-04] MEDS ORDERED: ACETAMINOPHEN 1000 MG/100 ML BAG IVPB ONE (23:09)
[2022-06-04] MEDS: MELATONIN 5 MG TABLETS PO PRN (23:27)
[2022-06-05] MEDS ORDERED: diphenhydrAMINE HCL 25 MG CAPSULE (FP) PO ONE (00:11)
[2022-06-05] MEDS: D5-1/2NS+20 MEQ KCL - 20 MEQ/1,000 ML INFUS.BAG IV SCH ×3 (03:19→18:11)
[2022-06-05] MEDS: TRIMETHOBENZAMIDE HCL 200MG/2ML INJ IM ONE ×2 (05:18→05:43)
[2022-06-05] MEDS: chlordiazePOXIDE HCL 25 MG CAPSULE PO SCH ×4 (05:20→22:43)
[2022-06-05] MEDS ORDERED: ACETAMINOPHEN 500 MG TABLET (FP) PO ONE (06:31)
[2022-06-05 08:37] LABS: ALBUMIN 2.5 g/dl (3.4-5.0); BLOOD UREA NITROGEN 4.6 mg/dL (7-18)
[2022-06-05 08:41] LABS: TOT PROT 7.8 g/dl (6.4-8.2)
[2022-06-05] MEDS ORDERED: ACETAMINOPHEN 1000 MG/100 ML BAG IVPB ONE (08:45)
[2022-06-05 09:02] LABS: BASO % 0.6 % (0-2.0); EOS % 2.9 % (0-4.5); HEMOGLOBIN 11.3 GM/dL (11.7-16.9); LYMPH % 31.1 % (8-40); MCH 35.5 pg (25.7-33.7); MCHC 35.3 g/dl (32.0-35.9); MEAN CELL VOLUME 100.5 fl (80-96); MEAN PLT VOLUME 8.4 fl (7.5-11.1); NEUT % 55.4 % (42.8-82.8); PLATELET COUNT 250 10^3/uL (134-434); RBC 3.19 M/mm3 (4.00-5.60); RDW 13.8 % (11.9-15.9); WHITE BLOOD COUNT 7.1 K/mm3 (4.0-10.0)
[2022-06-05] MEDS: PANTOPRAZOLE 40 MG TABLET PO SCH (09:03)
[2022-06-05] MEDS: FOLIC ACID 1 MG TABLET (FP) PO SCH (09:03)
[2022-06-05] MEDS ORDERED: THIAMINE HCL 200 MG/2 ML VIAL IM SCH (10:00)
[2022-06-05] MEDS ORDERED: morphine CARPU-JECT 4 MG/1 ML DISP.SYRIN IVPUSH PRN (10:52)
[2022-06-05] MEDS ORDERED: FOLIC ACID INJECTION - 1 MG, THIAMINE HCL 100 MG, MULTIVIT INJECTION ADULT 10 ML in SOD... IVPB ONE (20:30)
[2022-06-05] MEDS: KCL 10 MEQ IVPB 10 MEQ/100 ML INFUS.BAG IVPB SCH (22:58)
[2022-06-06] MEDS: KCL 10 MEQ IVPB 10 MEQ/100 ML INFUS.BAG IVPB SCH ×2 (00:06→01:17)
[2022-06-06] MEDS ORDERED: chlordiazePOXIDE HCL 25 MG CAPSULE PO SCH (05:00)
[2022-06-06 09:08] LABS: BASO % 0.7 % (0-2.0); EOS % 2.8 % (0-4.5); HEMATOCRIT 33.7 % (35.4-49); HEMOGLOBIN 11.6 GM/dL (11.7-16.9); LYMPH % 29.5 % (8-40); MCH 34.7 pg (25.7-33.7); MCHC 34.2 g/dl (32.0-35.9); MEAN CELL VOLUME 101.3 fl (80-96); MEAN PLT VOLUME 8.5 fl (7.5-11.1); PLATELET COUNT 259 10^3/uL (134-434); RBC 3.33 M/mm3 (4.00-5.60); RDW 13.6 % (11.9-15.9); WHITE BLOOD COUNT 7.6 K/mm3 (4.0-10.0)
[2022-06-06 09:18] LABS: ACTIVATED PTT 33.9 SECONDS (25.2-36.5)
[2022-06-06] MEDS: FOLIC ACID 1 MG TABLET (FP) PO SCH (09:18)
[2022-06-06] MEDS: PANTOPRAZOLE 40 MG TABLET PO SCH (09:18)
[2022-06-06 09:19] LABS: INR 1.52 (0.83-1.09); PROTHROMBIN TIME (PATIENT) 17.6 SEC (9.7-13.0)
[2022-06-06 09:39] LABS: CHLORIDE 110 mmol/L (98-107); SODIUM 137 mmol/L (136-145)
[2022-06-06 09:44] LABS: ALBUMIN 2.7 g/dl (3.4-5.0); ANION GAP 6 MMOL/L (8-16); CALCIUM 8.2 mg/dL (8.5-10.1); CO2 20 mmol/L (21-32); GLUCOSE,RANDOM 110 mg/dL (74-106); MAGNESIUM 1.3 mg/dL (1.8-2.4)
[2022-06-06 09:46] LABS: CREATININE 0.9 mg/dL (0.55-1.3); PHOSPHOROUS 2.5 mg/dL (2.5-4.9); SGOT/AST 82 U/L (15-37); SGPT/ALT 38 U/L (13-61)
[2022-06-06 09:49] LABS: ALK PHOS 165 U/L (45-117)
[2022-06-06 10:03] LABS: BLOOD UREA NITROGEN 2.6 mg/dL (7-18)
[2022-06-06] MEDS ORDERED: LORazepam 2 MG/ML SDV VIAL IVPUSH PRN (10:29)
[2022-06-06] MEDS ORDERED: MAGNESIUM OXIDE 400 MG TABLET (FP) PO ONE (18:19)
[2022-06-06] MEDS: MELATONIN 5 MG TABLETS PO PRN (21:18)
[2022-06-07] MEDS ORDERED: chlordiazePOXIDE HCL 10 MG CAPSULE PO PRN
[2022-06-07] MEDS ORDERED: chlordiazePOXIDE HCL 10 MG CAPSULE PO SCH (05:00)
[2022-06-07] MEDS: FOLIC ACID 1 MG TABLET (FP) PO SCH (10:13)
[2022-06-07] MEDS: PANTOPRAZOLE 40 MG TABLET PO SCH (10:13)
[2022-06-07] MEDS: ENOXAPARIN NA (PORCINE) 40 MG/0.4 ML DISP.SYRIN SQ SCH ×2 (10:13→10:15)
[2022-06-07 11:09] LABS: HEMATOCRIT 33.6 % (35.4-49); HEMOGLOBIN 11.7 GM/dL (11.7-16.9); MCH 35.1 pg (25.7-33.7); MCHC 34.9 g/dl (32.0-35.9); MEAN CELL VOLUME 100.5 fl (80-96); MEAN PLT VOLUME 8.6 fl (7.5-11.1); PLATELET COUNT 286 10^3/uL (134-434); RBC 3.35 M/mm3 (4.00-5.60); RDW 13.4 % (11.9-15.9)
[2022-06-07 11:26] LABS: CALCIUM 8.6 mg/dL (8.5-10.1)
[2022-06-07 11:27] LABS: ALBUMIN 2.6 g/dl (3.4-5.0); BLOOD UREA NITROGEN 4.4 mg/dL (7-18); MAGNESIUM 1.4 mg/dL (1.8-2.4)
[2022-06-07 11:29] LABS: PHOSPHOROUS 2.9 mg/dL (2.5-4.9)
[2022-06-07 11:30] LABS: CREATININE 1.1 mg/dL (0.55-1.3)
[2022-06-07 11:31] LABS: BILIRUBIN,TOTAL 1.8 mg/dL (0.2-1); TOT PROT 7.8 g/dl (6.4-8.2)
[2022-06-07] MEDS: MELATONIN 5 MG TABLETS PO PRN (21:21)
[2022-06-08] MEDS ORDERED: chlordiazePOXIDE HCL 10 MG CAPSULE PO SCH (05:00)
[2022-06-08 09:13] LABS: BASO % 0.9 % (0-2.0); EOS % 2.4 % (0-4.5); HEMATOCRIT 32.8 % (35.4-49); HEMOGLOBIN 11.6 GM/dL (11.7-16.9); LYMPH % 31.5 % (8-40); MCH 35.4 pg (25.7-33.7); MCHC 35.2 g/dl (32.0-35.9); MEAN CELL VOLUME 100.6 fl (80-96); MEAN PLT VOLUME 8.6 fl (7.5-11.1); MONO % 10.6 % (3.8-10.2); NEUT % 54.6 % (42.8-82.8); PLATELET COUNT 282 10^3/uL (134-434); RBC 3.27 M/mm3 (4.00-5.60); RDW 13.3 % (11.9-15.9); WHITE BLOOD COUNT 8.7 K/mm3 (4.0-10.0)
[2022-06-08 09:30] LABS: CALCIUM 8.3 mg/dL (8.5-10.1)
[2022-06-08 09:31] LABS: ALBUMIN 2.6 g/dl (3.4-5.0); BLOOD UREA NITROGEN 5.1 mg/dL (7-18); MAGNESIUM 1.3 mg/dL (1.8-2.4)
[2022-06-08 09:34] LABS: CREATININE 1.1 mg/dL (0.55-1.3); PHOSPHOROUS 3.6 mg/dL (2.5-4.9)
[2022-06-08 09:35] LABS: BILIRUBIN,TOTAL 1.6 mg/dL (0.2-1); TOT PROT 7.7 g/dl (6.4-8.2)
[2022-06-08] MEDS: ENOXAPARIN NA (PORCINE) 40 MG/0.4 ML DISP.SYRIN SQ SCH ×2 (09:58→10:03)
[2022-06-08] MEDS: PANTOPRAZOLE 40 MG TABLET PO SCH (09:58)
[2022-06-08] MEDS: PARoxetine HCL 10 MG TABLET PO SCH (09:58)
[2022-06-08] MEDS: FOLIC ACID 1 MG TABLET (FP) PO SCH (09:58)
[2022-06-08] MEDS: MELATONIN 5 MG TABLETS PO PRN (22:07)
[2022-06-09] MEDS ORDERED: chlordiazePOXIDE HCL 10 MG CAPSULE PO ONE (05:00)
[2022-06-09] MEDS: PARoxetine HCL 10 MG TABLET PO SCH ×2 (08:42→09:54)
[2022-06-09] MEDS: FOLIC ACID 1 MG TABLET (FP) PO SCH ×2 (08:42→09:54)
[2022-06-09] MEDS: PANTOPRAZOLE 40 MG TABLET PO SCH ×2 (08:43→09:54)
[2022-06-09 09:24] LABS: BASO % 0.9 % (0-2.0); EOS % 2.3 % (0-4.5); HEMOGLOBIN 11.7 GM/dL (11.7-16.9); LYMPH % 25.8 % (8-40); MCH 35.2 pg (25.7-33.7); MCHC 35.3 g/dl (32.0-35.9); MEAN CELL VOLUME 99.6 fl (80-96); MEAN PLT VOLUME 8.8 fl (7.5-11.1); MONO % 10.3 % (3.8-10.2); NEUT % 60.7 % (42.8-82.8); PLATELET COUNT 277 10^3/uL (134-434); RBC 3.32 M/mm3 (4.00-5.60); WHITE BLOOD COUNT 8.2 K/mm3 (4.0-10.0)
[2022-06-09] MEDS: ENOXAPARIN NA (PORCINE) 40 MG/0.4 ML DISP.SYRIN SQ SCH (09:54)
[2022-06-09 09:55] LABS: ALBUMIN 2.7 g/dl (3.4-5.0); BLOOD UREA NITROGEN 4.6 mg/dL (7-18); CALCIUM 8.3 mg/dL (8.5-10.1)
[2022-06-09 09:57] LABS: TOT PROT 7.9 g/dl (6.4-8.2)
[2022-06-09 09:59] LABS: BILIRUBIN,TOTAL 1.6 mg/dL (0.2-1)
[2022-06-10] MEDS: ENOXAPARIN NA (PORCINE) 40 MG/0.4 ML DISP.SYRIN SQ SCH (09:08)
[2022-06-10 11:05] LABS: BASO % 1.1 % (0-2.0); EOS % 1.2 % (0-4.5); HEMATOCRIT 34.4 % (35.4-49); HEMOGLOBIN 12.1 GM/dL (11.7-16.9); MCH 34.9 pg (25.7-33.7); MCHC 35.2 g/dl (32.0-35.9); MEAN CELL VOLUME 99.1 fl (80-96); MEAN PLT VOLUME 8.4 fl (7.5-11.1); MONO % 10.1 % (3.8-10.2); NEUT % 63.6 % (42.8-82.8); PLATELET COUNT 309 10^3/uL (134-434); RBC 3.47 M/mm3 (4.00-5.60); RDW 13.1 % (11.9-15.9); WHITE BLOOD COUNT 9.5 K/mm3 (4.0-10.0)
[2022-06-10 11:12] LABS: INR 1.45 (0.83-1.09); PROTHROMBIN TIME (PATIENT) 16.8 SEC (9.7-13.0)
[2022-06-10 11:15] LABS: ACTIVATED PTT 39.8 SECONDS (25.2-36.5)
[2022-06-10] MEDS: FOLIC ACID 1 MG TABLET (FP) PO SCH (11:20)
[2022-06-10] MEDS: PANTOPRAZOLE 40 MG TABLET PO SCH (11:21)
[2022-06-10] MEDS: PARoxetine HCL 10 MG TABLET PO SCH (11:21)
[2022-06-10 11:28] LABS: BLOOD UREA NITROGEN 4.8 mg/dL (7-18); CALCIUM 8.8 mg/dL (8.5-10.1)
[2022-06-10 11:33] LABS: TOT PROT 8.5 g/dl (6.4-8.2)
[2022-06-10] MEDS: MELATONIN 5 MG TABLETS PO PRN (21:26)
[2022-06-11] MEDS: FOLIC ACID 1 MG TABLET (FP) PO SCH (10:26)
[2022-06-11] MEDS: PANTOPRAZOLE 40 MG TABLET PO SCH (10:26)
[2022-06-11] MEDS: PARoxetine HCL 10 MG TABLET PO SCH (10:27)
[2022-06-11] MEDS: PHYTONADIONE 5 MG TABLET PO SCH (10:41)
[2022-06-11] MEDS: ENOXAPARIN NA (PORCINE) 40 MG/0.4 ML DISP.SYRIN SQ SCH (10:41)
[2022-06-12 09:07] LABS: EOS % 1.6 % (0-4.5); HEMATOCRIT 32.5 % (35.4-49); HEMOGLOBIN 11.6 GM/dL (11.7-16.9); LYMPH % 29.7 % (8-40); MCH 35.4 pg (25.7-33.7); MCHC 35.6 g/dl (32.0-35.9); MEAN CELL VOLUME 99.5 fl (80-96); MEAN PLT VOLUME 8.6 fl (7.5-11.1); MONO % 12.2 % (3.8-10.2); NEUT % 55.5 % (42.8-82.8); PLATELET COUNT 278 10^3/uL (134-434); RBC 3.27 M/mm3 (4.00-5.60); RDW 12.7 % (11.9-15.9); WHITE BLOOD COUNT 8.8 K/mm3 (4.0-10.0)
[2022-06-12 09:12] LABS: INR 1.47 (0.83-1.09)
[2022-06-12 09:15] LABS: ACTIVATED PTT 36.6 SECONDS (25.2-36.5)
[2022-06-12 09:31] LABS: ALBUMIN 2.9 g/dl (3.4-5.0); CALCIUM 8.7 mg/dL (8.5-10.1)
[2022-06-12 09:32] LABS: BLOOD UREA NITROGEN 5.8 mg/dL (7-18)
[2022-06-12 09:36] LABS: BILIRUBIN,TOTAL 1.9 mg/dL (0.2-1); TOT PROT 7.9 g/dl (6.4-8.2)
[2022-06-12] MEDS: PHYTONADIONE 5 MG TABLET PO SCH (10:09)
[2022-06-12] MEDS: PANTOPRAZOLE 40 MG TABLET PO SCH (10:09)
[2022-06-12] MEDS: FOLIC ACID 1 MG TABLET (FP) PO SCH (10:09)
[2022-06-12] MEDS: PARoxetine HCL 10 MG TABLET PO SCH (10:09)
[2022-06-12] MEDS: ENOXAPARIN NA (PORCINE) 40 MG/0.4 ML DISP.SYRIN SQ SCH ×2 (10:10→10:23)
[2022-06-12] MEDS ORDERED: traMADol HCL 50 MG TABLET PO PRN (11:26)
[2022-06-12] MEDS: traMADol HCL 50 MG TABLET PO PRN ×2 (15:22→21:38)
[2022-06-12] MEDS: MELATONIN 5 MG TABLETS PO PRN (21:38)
[2022-06-13] MEDS: ENOXAPARIN NA (PORCINE) 40 MG/0.4 ML DISP.SYRIN SQ SCH (09:29)
[2022-06-13] MEDS: traMADol HCL 50 MG TABLET PO PRN ×3 (09:31→22:30)
[2022-06-13] MEDS: FOLIC ACID 1 MG TABLET (FP) PO SCH (09:32)
[2022-06-13] MEDS: PANTOPRAZOLE 40 MG TABLET PO SCH (09:32)
[2022-06-13] MEDS: PARoxetine HCL 10 MG TABLET PO SCH (09:32)
[2022-06-13] MEDS: PHYTONADIONE 5 MG TABLET PO SCH (09:32)
[2022-06-13 10:14] LABS: BASO % 0.9 % (0-2.0); EOS % 1.1 % (0-4.5); HEMATOCRIT 34.2 % (35.4-49); HEMOGLOBIN 11.9 GM/dL (11.7-16.9); LYMPH % 27.7 % (8-40); MCH 34.4 pg (25.7-33.7); MCHC 34.8 g/dl (32.0-35.9); MEAN CELL VOLUME 98.9 fl (80-96); MEAN PLT VOLUME 8.9 fl (7.5-11.1); MONO % 11.5 % (3.8-10.2); NEUT % 58.8 % (42.8-82.8); PLATELET COUNT 261 10^3/uL (134-434); RBC 3.46 M/mm3 (4.00-5.60); RDW 12.8 % (11.9-15.9); WHITE BLOOD COUNT 8.6 K/mm3 (4.0-10.0)
[2022-06-13 10:18] LABS: INR 1.51 (0.83-1.09); PROTHROMBIN TIME (PATIENT) 17.4 SEC (9.7-13.0)
[2022-06-13 10:35] LABS: ALBUMIN 2.9 g/dl (3.4-5.0); CALCIUM 8.8 mg/dL (8.5-10.1)
[2022-06-13 10:40] LABS: BILIRUBIN,TOTAL 2.3 mg/dL (0.2-1); TOT PROT 7.9 g/dl (6.4-8.2)
[2022-06-13] MEDS: MELATONIN 5 MG TABLETS PO PRN (22:30)
[2022-06-14] MEDS ORDERED: ACETAMINOPHEN 1000 MG/100 ML BAG IVPB ONE (06:30)
[2022-06-14] MEDS: traMADol HCL 50 MG TABLET PO PRN (08:09)
[2022-06-14 08:43] LABS: BASO % 1.1 % (0-2.0); EOS % 1.9 % (0-4.5); HEMATOCRIT 33.7 % (35.4-49); HEMOGLOBIN 11.8 GM/dL (11.7-16.9); LYMPH % 24.7 % (8-40); MCH 34.4 pg (25.7-33.7); MEAN CELL VOLUME 98.2 fl (80-96); MEAN PLT VOLUME 8.6 fl (7.5-11.1); MONO % 11.4 % (3.8-10.2); NEUT % 60.9 % (42.8-82.8); PLATELET COUNT 277 10^3/uL (134-434); RBC 3.44 M/mm3 (4.00-5.60); RDW 12.6 % (11.9-15.9); WHITE BLOOD COUNT 9.1 K/mm3 (4.0-10.0)
[2022-06-14 09:04] LABS: ALBUMIN 2.8 g/dl (3.4-5.0); BLOOD UREA NITROGEN 5.6 mg/dL (7-18); CALCIUM 8.3 mg/dL (8.5-10.1); MAGNESIUM 1.3 mg/dL (1.8-2.4)
[2022-06-14 09:07] LABS: PHOSPHOROUS 4.2 mg/dL (2.5-4.9)
[2022-06-14 09:08] LABS: BILIRUBIN,TOTAL 2.2 mg/dL (0.2-1); INR 1.5 (0.83-1.09); PROTHROMBIN TIME (PATIENT) 17.3 SEC (9.7-13.0)
[2022-06-14 09:09] LABS: TOT PROT 7.9 g/dl (6.4-8.2)
[2022-06-14 09:10] LABS: ACTIVATED PTT 38.6 SECONDS (25.2-36.5)
[2022-06-14] MEDS ORDERED: BUPIVACAINE HCL/PF 0.25% (2.5MG/ML) 10 ML VIAL ONE (09:46)
[2022-06-14] MEDS ORDERED: ROCURONIUM BROMIDE 50 MG/5 ML SYRINGE ONE ×2 (09:48→11:46)
[2022-06-14] MEDS ORDERED: PROPOFOL 20 ML ONE ×2 (09:48→11:52)
[2022-06-14] MEDS ORDERED: MIDAZOLAM HCL 2 MG/2 ML SINGLE DOSE VIAL ONE (09:48)
[2022-06-14] MEDS: PARoxetine HCL 10 MG TABLET PO SCH (10:27)
[2022-06-14] MEDS: FOLIC ACID 1 MG TABLET (FP) PO SCH (10:27)
[2022-06-14] MEDS: PANTOPRAZOLE 40 MG TABLET PO SCH (10:27)
[2022-06-14] MEDS ORDERED: cefOXitin SODIUM 2 GM VIAL (RESTRICTED TO ID) IVPB ONE (11:22)
[2022-06-14] MEDS ORDERED: HYDROmorphone HCl 2 MG/ML VIAL ONE (11:29)
[2022-06-14] MEDS ORDERED: BUPIVACAINE HCL/PF 0.25% (2.5MG/ML) 10 ML VIAL IJ ONE (11:37)
[2022-06-14] MEDS ORDERED: SUGAMMADEX SODIUM 200 MG/2 ML VIAL ONE (12:15)
[2022-06-14] MEDS ORDERED: PROMETHAZINE HCL 25 MG/1 ML VIAL IVPB PRN ×2 (13:10→13:36)
[2022-06-14] MEDS ORDERED: LACTATED RINGERS SOLUTION 1,000 ML IV SCH ×2 (13:15→13:36)
[2022-06-14] MEDS ORDERED: MELATONIN 5 MG TABLETS PO PRN (13:36)
[2022-06-14] MEDS: FENTANYL CITRATE/PF 50 MCG/ML VIAL IVPUSH PRN ×2 (16:25→22:20)
[2022-06-14] MEDS ORDERED: MAGNESIUM SULF 50% (8.12 MEQ/2 ML-1 GM VIAL) IVPB ONE (16:57)
[2022-06-14] MEDS ORDERED: MUPIROCIN 2% TOPICAL OINTMENT FOR DECOLONIZATION NS SCH (22:00)
[2022-06-14] MEDS ORDERED: CHLORHEXIDINE GLUCONATE 4% CLEANSER FOR DECOLONIZATION TP SCH ×2 (22:00)
[2022-06-15] MEDS: FENTANYL CITRATE/PF 50 MCG/ML VIAL IVPUSH PRN (03:22)
[2022-06-15] MEDS ORDERED: morphine SULFATE 4 MG/ML VIAL IVPUSH ONE (07:29)
[2022-06-15 07:37] LABS: BASO % 0.2 % (0-2.0); HEMATOCRIT 32.9 % (35.4-49); HEMOGLOBIN 11.5 GM/dL (11.7-16.9); LYMPH % 14.3 % (8-40); MCH 34.4 pg (25.7-33.7); MEAN CELL VOLUME 98.2 fl (80-96); MEAN PLT VOLUME 8.7 fl (7.5-11.1); MONO % 9.2 % (3.8-10.2); NEUT % 76.3 % (42.8-82.8); PLATELET COUNT 299 10^3/uL (134-434); RBC 3.35 M/mm3 (4.00-5.60); RDW 12.5 % (11.9-15.9); WHITE BLOOD COUNT 14.3 K/mm3 (4.0-10.0)
[2022-06-15 07:44] LABS: INR 1.46 (0.83-1.09); PROTHROMBIN TIME (PATIENT) 16.9 SEC (9.7-13.0)
[2022-06-15 08:06] LABS: CALCIUM 8.6 mg/dL (8.5-10.1)
[2022-06-15 08:07] LABS: ALBUMIN 2.5 g/dl (3.4-5.0); BLOOD UREA NITROGEN 11.3 mg/dL (7-18); MAGNESIUM 2.3 mg/dL (1.8-2.4)
[2022-06-15 08:10] LABS: PHOSPHOROUS 3.9 mg/dL (2.5-4.9)
[2022-06-15 08:11] LABS: BILIRUBIN,TOTAL 1.3 mg/dL (0.2-1); TOT PROT 7.4 g/dl (6.4-8.2)
[2022-06-15] MEDS ORDERED: HYDROmorphone HCL 2 MG TABLET PO PRN (08:48)
[2022-06-15 09:13] LABS: BILIRUBIN,DIRECT 0.7 mg/dL (0.0-0.2)
[2022-06-15] MEDS: MUPIROCIN 2% TOPICAL OINTMENT FOR DECOLONIZATION NS SCH ×2 (09:19→11:00)
[2022-06-15] MEDS ORDERED: PARoxetine HCL 10 MG TABLET PO SCH (10:00)
[2022-06-15] MEDS ORDERED: PANTOPRAZOLE 40 MG TABLET PO SCH (10:00)
[2022-06-15] MEDS ORDERED: ENOXAPARIN NA (PORCINE) 40 MG/0.4 ML DISP.SYRIN SQ SCH (10:00)
[2022-06-15] MEDS ORDERED: FOLIC ACID 1 MG TABLET (FP) PO SCH (10:00)
[2022-06-15 11:40] VITALS: RESP 15
[2022-06-15 12:51] VITALS: BP 112/65; PULSE 74; TEMP 98.6
== END 2022-06-15 13:17 | disposition home or self-care (01) | DRG 418 ==
LOC: JER 21:12 → JERBED 06-04 00:32 → OBSVTOIN 06-04 02:44 → J5S 06-04 05:33 → JICU 06-14 15:11
PROVIDERS: ADMIT Internal Medicine; ATTEND Internal Medicine Pulmonary Disease
PROC: HZ2ZZZZ Detoxification Services for Substance Abuse Treatment (ICD-10-PCS; 2022-06-04)
PROC: 0FT44ZZ Resection of Gallbladder, Percutaneous Endoscopic Approach (ICD-10-PCS; principal; 2022-06-14 10:30)
DX: K82.4 Cholesterolosis of gallbladder (principal); F10.239 Alcohol dependence with withdrawal, unspecified; K82.1 Hydrops of gallbladder; F41.8 Other specified anxiety disorders; E78.5 Hyperlipidemia, unspecified; R10.11 Right upper quadrant pain; K76.0 Fatty (change of) liver, not elsewhere classified; K70.10 Alcoholic hepatitis without ascites; K70.30 Alcoholic cirrhosis of liver without ascites; F43.10 Post-traumatic stress disorder, unspecified; K29.20 Alcoholic gastritis without bleeding; K83.8 Other specified diseases of biliary tract; R16.0 Hepatomegaly, not elsewhere classified
CPT/HCPCS: 0241U-QW; 36415; 71046-TC-FY; 74021-TC-FY; 74181-TC; 76705-TC; 80053; 80307; 82248; 82272; 83605; 83690; 83735; 84100; 85025; 85027; 85610; 85730; 86850; 86900; 86901; 86922; 87040; 88304-TC; 93005; 93010; 94760; 99283-25; 99285-25; G0378

== ENCOUNTER 2022-06-18 05:02 | Observation (INO) | payer OTHER ==
[2022-06-18 05:34] VITALS: TEMP 98.6; BMI 30.9
[2022-06-18] MEDS ORDERED: PIPERACILLIN/TAZOB 4.5 GM 4.5 GM in DEXTROSE 5%-WATER 100 ML IVPB ONE (07:09)
[2022-06-18] MEDS ORDERED: VANCOMYCIN 1 GM in D5W (PRE-DOCKED) 1,000 MG/250 ML (RESTRICTED TO ID ONLY IVPB ONE (07:09)
[2022-06-18] MEDS ORDERED: PIPERACILLIN/TAZOB 4.5 GM 4.5 GM/100 ML BAG IVPB ONE (07:36)
[2022-06-18] MEDS ORDERED: VANCOMYCIN/WATER FOR INJ (PEG) 1,000 MG/200 ML BAG IVPB ONE (07:36)
[2022-06-18 07:42] LABS: BASO % 1.3 % (0-2.0); EOS % 0.7 % (0-4.5); HEMATOCRIT 30.9 % (35.4-49); HEMOGLOBIN 10.8 GM/dL (11.7-16.9); LYMPH % 11.4 % (8-40); MCH 34.8 pg (25.7-33.7); MCHC 34.9 g/dl (32.0-35.9); MEAN CELL VOLUME 99.7 fl (80-96); MEAN PLT VOLUME 8.1 fl (7.5-11.1); MONO % 9.5 % (3.8-10.2); NEUT % 77.1 % (42.8-82.8); PLATELET COUNT 345 10^3/uL (134-434); RDW 12.7 % (11.9-15.9); WHITE BLOOD COUNT 10.6 K/mm3 (4.0-10.0)
[2022-06-18 07:54] LABS: INR 1.39 (0.83-1.09); PROTHROMBIN TIME (PATIENT) 16.1 SEC (9.7-13.0)
[2022-06-18 07:55] LABS: VENOUS BASE EXCESS -0.3 mmol/L (-2-2); VENOUS O2 SATURATION 40.8 % (70-80); VENOUS PH 7.366 (7.310-7.410)
[2022-06-18 07:57] LABS: ACTIVATED PTT 34.2 SECONDS (25.2-36.5)
[2022-06-18] MEDS ORDERED: SODIUM CHLORIDE 0.9% 500 ML INFUS.BAG IV ONE (07:58)
[2022-06-18 08:03] LABS: CALCIUM 8.5 mg/dL (8.5-10.1)
[2022-06-18 08:06] LABS: CREATININE 1.5 mg/dL (0.55-1.3)
[2022-06-18 08:08] LABS: BILIRUBIN,TOTAL 0.9 mg/dL (0.2-1); TOT PROT 7.8 g/dl (6.4-8.2)
[2022-06-18 08:11] LABS: N-TERMINAL BNP 576.8 pg/ml (5-125)
[2022-06-18 09:21] VITALS: BP 105/56; PULSE 88; RESP 18
[2022-06-18 11:34] LABS: COCAINE, UR NEGATIVE (NEGATIVE); METHADONE, UR NEGATIVE (NEGATIVE); URINE BARBITURATES NEGATIVE (NEGATIVE)
[2022-06-18 11:35] LABS: PHENCYCLIDINE,URINE NEGATIVE (NEGATIVE); URINE AMPHETAMINES NEGATIVE (NEGATIVE)
[2022-06-18 11:36] LABS: PH,URINE 5.5 (5.0-8.0); URINE APPEARANCE CLEAR; URINE BILIRUBIN NEGATIVE (NEGATIVE); URINE COLOR YELLOW; URINE GLUCOSE (UA) NEGATIVE (NEGATIVE); URINE KETONE NEGATIVE (NEGATIVE); URINE LEUK ESTERASE NEGATIVE (NEGATIVE); URINE NITRITE NEGATIVE (NEGATIVE); URINE PROTEIN NEGATIVE (NEGATIVE); URINE UROBILINOGEN 0.2 mg/dL (0.2-1.0)
[2022-06-18 11:40] LABS: OPIATES, URI POSITIVE (NEGATIVE); URINE BENZODIAZEPINES POSITIVE (NEGATIVE)
== END 2022-06-18 11:48 | disposition left against medical advice (07) ==
LOC: JER 05:02 → JERBED 10:39
PROVIDERS: ADMIT Internal Medicine; ATTEND Internal Medicine
PROC: 3E03329 Introduction of Other Anti-infective into Peripheral Vein, Percutaneous Approach (ICD-10-PCS; principal; 2022-06-18)
PROC: 3E0337Z Introduction of Electrolytic and Water Balance Substance into Peripheral Vein, Percutaneous Approach (ICD-10-PCS; 2022-06-18)
DX: T40.2X1A Poisoning by other opioids, accidental (unintentional), initial encounter (principal); F10.99 Alcohol use, unspecified with unspecified alcohol-induced disorder; K76.0 Fatty (change of) liver, not elsewhere classified; K74.60 Unspecified cirrhosis of liver; F14.21 Cocaine dependence, in remission; F41.8 Other specified anxiety disorders; F43.10 Post-traumatic stress disorder, unspecified; F17.210 Nicotine dependence, cigarettes, uncomplicated; N04.9 Nephrotic syndrome with unspecified morphologic changes; E78.00 Pure hypercholesterolemia, unspecified; R09.02 Hypoxemia
CPT/HCPCS: 0241U-QW; 36415; 71045-TC-FY; 71275-TC; 80053; 80307; 81003; 82803; 83880; 84484; 85025; 85379; 85610; 85730; 87086; 93005; 93010; 96361; 96374; 99285-25; G0378; Q9967

== ENCOUNTER 2022-07-18 10:21 | Emergency (ER) | payer OTHER ==
[2022-07-18 10:41] VITALS: RESP 18; BMI 27.8
[2022-07-18] MEDS ORDERED: morphine CARPU-JECT 4 MG/1 ML DISP.SYRIN IVPUSH ONE (11:07)
[2022-07-18] MEDS ORDERED: morphine SULFATE 4 MG/ML VIAL ONE (11:11)
[2022-07-18 11:57] LABS: BASO % 0.7 % (0-2.0); EOS % 1.1 % (0-4.5); HEMOGLOBIN 10.6 GM/dL (11.7-16.9); LYMPH % 19.4 % (8-40); MCH 31.4 pg (25.7-33.7); MCHC 33.1 g/dl (32.0-35.9); MEAN CELL VOLUME 94.8 fl (80-96); MEAN PLT VOLUME 7.1 fl (7.5-11.1); MONO % 8.6 % (3.8-10.2); NEUT % 70.2 % (42.8-82.8); PLATELET COUNT 478 10^3/uL (134-434); RBC 3.37 M/mm3 (4.00-5.60); RDW 14.7 % (11.9-15.9); WHITE BLOOD COUNT 14.8 K/mm3 (4.0-10.0)
[2022-07-18 12:05] LABS: INR 1.38 (0.83-1.09); PROTHROMBIN TIME (PATIENT) 15.9 SEC (9.7-13.0)
[2022-07-18 12:07] LABS: ACTIVATED PTT 35.2 SECONDS (25.2-36.5)
[2022-07-18 12:08] LABS: POTASSIUM 3.2 mmol/L (3.5-5.1)
[2022-07-18 12:11] LABS: ALBUMIN 3.4 g/dl (3.4-5.0); BLOOD UREA NITROGEN 3.8 mg/dL (7-18); MAGNESIUM 1.9 mg/dL (1.8-2.4)
[2022-07-18 12:15] LABS: BILIRUBIN,TOTAL 0.6 mg/dL (0.2-1); TOT PROT 8.4 g/dl (6.4-8.2)
[2022-07-18] MEDS ORDERED: oxyCODONE HCL 5 MG TABLET PO ONE (15:05)
[2022-07-18] MEDS ORDERED: oxyCODONE HCL 5 MG TABLET ONE (15:09)
[2022-07-18 15:45] VITALS: BP 151/94; PULSE 93; TEMP 98.4
== END 2022-07-18 16:03 | disposition home or self-care (01) ==
LOC: JER 10:21
PROC: 3E033GC Introduction of Other Therapeutic Substance into Peripheral Vein, Percutaneous Approach (ICD-10-PCS; principal; 2022-07-18)
DX: R07.82 Intercostal pain (principal); Z20.822 Contact with and (suspected) exposure to COVID-19
CPT/HCPCS: 0241U-QW; 36415; 71260-TC; 74177-TC; 80053; 82272; 83690; 83735; 84484; 85025; 85610; 85730; 86850; 86900; 86901; 93005; 93010; 99285-25; Q9967

== ENCOUNTER 2022-07-21 09:16 | Emergency (ER) | payer OTHER ==
[2022-07-21 09:25] VITALS: BP 127/86; PULSE 101; RESP 18; TEMP 98.1; BMI 29.0
[2022-07-21] MEDS ORDERED: oxyCODONE HCL 5 MG TABLET PO ONE (10:43)
[2022-07-21] MEDS ORDERED: oxyCODONE HCL 5 MG TABLET ONE (11:05)
[2022-07-21 12:45] LABS: BASO % 0.8 % (0-2.0); EOS % 0.9 % (0-4.5); HEMOGLOBIN 9.5 GM/dL (11.7-16.9); LYMPH % 18.6 % (8-40); MCHC 33.9 g/dl (32.0-35.9); MEAN CELL VOLUME 94.5 fl (80-96); MEAN PLT VOLUME 7.6 fl (7.5-11.1); MONO % 5.5 % (3.8-10.2); NEUT % 74.2 % (42.8-82.8); PLATELET COUNT 470 10^3/uL (134-434); RBC 2.97 M/mm3 (4.00-5.60); RDW 14.9 % (11.9-15.9); WHITE BLOOD COUNT 13.2 K/mm3 (4.0-10.0)
[2022-07-21 13:11] LABS: POTASSIUM 4.1 mmol/L (3.5-5.1)
[2022-07-21 13:14] LABS: BLOOD UREA NITROGEN 4.3 mg/dL (7-18)
[2022-07-21 13:16] LABS: BILIRUBIN,DIRECT 0.6 mg/dL (0.0-0.2); CREATININE 0.8 mg/dL (0.55-1.3)
[2022-07-21 13:18] LABS: BILIRUBIN,TOTAL 1.2 mg/dL (0.2-1); TOT PROT 7.4 g/dl (6.4-8.2)
[2022-07-21] MEDS ORDERED: KETOROLAC TROMETHAMINE 30 MG/1 ML VIAL IM ONE (13:59)
[2022-07-21] MEDS ORDERED: KETOROLAC TROMETHAMINE 30 MG/1 ML VIAL ONE (14:01)
== END 2022-07-21 15:59 | disposition home or self-care (01) ==
LOC: JER 09:16 → JERFT 09:16
PROC: 3E0233Z Introduction of Anti-inflammatory into Muscle, Percutaneous Approach (ICD-10-PCS; principal; 2022-07-21)
DX: R07.9 Chest pain, unspecified (principal)
CPT/HCPCS: 36415; 74177-TC; 80048; 80076; 85025; 99285-25; Q9967

== ENCOUNTER 2022-07-22 22:07 | Inpatient (IN) | payer OTHER ==
[2022-07-22] MEDS ORDERED: morphine CARPU-JECT 2 MG/1 ML DISP.SYRIN IVPUSH ONE (23:24)
[2022-07-23] MEDS ORDERED: SIMETHICONE 80 MG TAB.CHEW (FP) ONE (00:20)
[2022-07-23] MEDS ORDERED: SIMETHICONE 40 MG/0.6 ML BOTTLE PO ONE (00:23)
[2022-07-23 00:36] LABS: EOS % 1.6 % (0-4.5); HEMATOCRIT 22.3 % (35.4-49); HEMOGLOBIN 7.8 GM/dL (11.7-16.9); INR 1.55 (0.83-1.09); LYMPH % 28.4 % (8-40); MCH 32.7 pg (25.7-33.7); MCHC 34.9 g/dl (32.0-35.9); MEAN CELL VOLUME 93.5 fl (80-96); MEAN PLT VOLUME 7.5 fl (7.5-11.1); MONO % 6.9 % (3.8-10.2); NEUT % 62.1 % (42.8-82.8); PLATELET COUNT 411 10^3/uL (134-434); PROTHROMBIN TIME (PATIENT) 17.9 SEC (9.7-13.0); RBC 2.39 M/mm3 (4.00-5.60); WHITE BLOOD COUNT 13.6 K/mm3 (4.0-10.0)
[2022-07-23 00:38] LABS: CALCIUM 8.1 mg/dL (8.5-10.1)
[2022-07-23 00:39] LABS: ACTIVATED PTT 34.6 SECONDS (25.2-36.5); ALBUMIN 2.6 g/dl (3.4-5.0); BLOOD UREA NITROGEN 16.5 mg/dL (7-18)
[2022-07-23 00:42] LABS: CREATININE 0.8 mg/dL (0.55-1.3)
[2022-07-23 00:43] LABS: TOT PROT 6.3 g/dl (6.4-8.2)
[2022-07-23 00:44] LABS: BILIRUBIN,TOTAL 0.7 mg/dL (0.2-1)
[2022-07-23] MEDS ORDERED: PANTOPRAZOLE SODIUM 40 MG VIAL IVPUSH ONE (01:23)
[2022-07-23] MEDS ORDERED: PANTOPRAZOLE SODIUM 80 MG/200 ML BAG IVPB ONE (02:13)
[2022-07-23] MEDS ORDERED: PANTOPRAZOLE SODIUM 80 MG in SODIUM CHLORIDE 100 ML IVPB SCH (02:15)
[2022-07-23] MEDS ORDERED: LORazepam 1 MG TABLET PO PRN ×2 (03:14→10:24)
[2022-07-23 03:23] VITALS: BMI 28.8
[2022-07-23] MEDS ORDERED: oxyCODONE HCL 5 MG TABLET PO SCH (03:45)
[2022-07-23] MEDS ORDERED: LACTATED RINGERS SOLUTION 1,000 ML/1,000 ML INFUS.BAG IV SCH (03:45)
[2022-07-23 07:13] LABS: HEMATOCRIT 19.5 % (35.4-49); MCH 32.7 pg (25.7-33.7); MCHC 34.8 g/dl (32.0-35.9); MEAN CELL VOLUME 94.1 fl (80-96); MEAN PLT VOLUME 7.4 fl (7.5-11.1); PLATELET COUNT 382 10^3/uL (134-434); RBC 2.07 M/mm3 (4.00-5.60); WHITE BLOOD COUNT 12.2 K/mm3 (4.0-10.0)
[2022-07-23 07:29] LABS: POTASSIUM 4.2 mmol/L (3.5-5.1)
[2022-07-23 07:32] LABS: CALCIUM 8.2 mg/dL (8.5-10.1)
[2022-07-23 07:33] LABS: ALBUMIN 2.5 g/dl (3.4-5.0); BLOOD UREA NITROGEN 20.7 mg/dL (7-18); MAGNESIUM 1.5 mg/dL (1.8-2.4)
[2022-07-23 07:36] LABS: CREATININE 0.8 mg/dL (0.55-1.3); PHOSPHOROUS 4.2 mg/dL (2.5-4.9)
[2022-07-23 07:38] LABS: BILIRUBIN,TOTAL 0.6 mg/dL (0.2-1); TOT PROT 5.8 g/dl (6.4-8.2)
[2022-07-23 08:22] LABS: HEMOGLOBIN 6.8 GM/dL (11.7-16.9)
[2022-07-23] MEDS ORDERED: ACETAMINOPHEN 1000 MG/100 ML BAG IVPB PRN (08:23)
[2022-07-23] MEDS ORDERED: ERYTHROMYCIN *INJECTION* 500 MG VIAL IVPB ONE (08:25)
[2022-07-23] MEDS ORDERED: PHYTONADIONE 10 MG/1 ML AMP IVPB ONE (09:15)
[2022-07-23] MEDS ORDERED: FOLIC ACID 1 MG TABLET (FP) PO ONE (10:00)
[2022-07-23] MEDS ORDERED: PANTOPRAZOLE SODIUM 40 MG VIAL IVPUSH SCH (10:00)
[2022-07-23] MEDS ORDERED: OCTREOTIDE ACETATE 200 MCG, OCTREOTIDE ACETATE 1,000 MCG in DEXTROSE 5%-WATER - 496 ML IVPB SCH (10:00)
[2022-07-23] MEDS ORDERED: ERYTHROMYCIN INJECTION - 250 MG in SODIUM CHLORIDE 100 ML IVPB ONE ×2 (10:00→13:04)
[2022-07-23] MEDS ORDERED: LORazepam 2 MG/ML SDV VIAL IVPUSH ONE (10:05)
[2022-07-23] MEDS ORDERED: levETIRAcetam 500 MG/5 ML INJECTION VIAL IVPB ONE ×3 (10:19→15:00)
[2022-07-23] MEDS ORDERED: ALBUTEROL SO4 2.5/IPRATROPIUM 0.5 INH SOL 3 ML VIAL.NEB. NEB PRN (10:35)
[2022-07-23] MEDS ORDERED: MAGNESIUM 2GM/50ML STERILE WATER IVPB IVPB ONE ×2 (11:00→15:00)
[2022-07-23] MEDS: OCTREOTIDE ACETATE 200 MCG, OCTREOTIDE ACETATE 1,000 MCG in DEXTROSE 5%-WATER - 496 ML IVPB SCH (14:38)
[2022-07-23] MEDS: LORazepam 1 MG TABLET PO SCH ×3 (14:56→22:17)
[2022-07-23] MEDS: LACTATED RINGERS SOLUTION 1,000 ML/1,000 ML INFUS.BAG IV SCH (15:03)
[2022-07-23 16:29] LABS: HEMATOCRIT 26.4 % (35.4-49); HEMOGLOBIN 8.7 GM/dL (11.7-16.9); MCH 30.9 pg (25.7-33.7); MEAN CELL VOLUME 93.4 fl (80-96); MEAN PLT VOLUME 7.2 fl (7.5-11.1); PLATELET COUNT 464 10^3/uL (134-434); RBC 2.83 M/mm3 (4.00-5.60); RDW 15.9 % (11.9-15.9); WHITE BLOOD COUNT 21.3 K/mm3 (4.0-10.0)
[2022-07-23 16:45] LABS: POTASSIUM 4.6 mmol/L (3.5-5.1)
[2022-07-23 16:47] LABS: CALCIUM 8.6 mg/dL (8.5-10.1)
[2022-07-23 16:48] LABS: ALBUMIN 2.5 g/dl (3.4-5.0); BLOOD UREA NITROGEN 24.3 mg/dL (7-18); MAGNESIUM 2.4 mg/dL (1.8-2.4)
[2022-07-23 16:51] LABS: CREATININE 1.2 mg/dL (0.55-1.3)
[2022-07-23 16:52] LABS: BILIRUBIN,TOTAL 2.6 mg/dL (0.2-1); TOT PROT 5.7 g/dl (6.4-8.2)
[2022-07-23 17:04] LABS: INR 1.54 (0.83-1.09); PROTHROMBIN TIME (PATIENT) 17.4 SEC (9.7-13.0)
[2022-07-23 17:17] LABS: ARTERIAL BLD GAS O2 SATURATION 97.1 % (95-98); ARTERIAL BLOOD GAS BASE EXCESS -3.4 mmol/L (-2-2); ARTERIAL BLOOD GAS PO2 87.3 mmHg (80-100)
[2022-07-23 17:18] LABS: ANISOCYTOSIS 1+; MACROCYTOSIS 0; TEAR DROP CELLS 1+
[2022-07-23 17:20] LABS: ALLENS TEST POSITIVE
[2022-07-23] MEDS: ACETAMINOPHEN 1000 MG/100 ML BAG IVPB PRN (21:02)
[2022-07-23] MEDS: PANTOPRAZOLE SODIUM 40 MG VIAL IVPUSH SCH (21:33)
[2022-07-23] MEDS: levETIRAcetam 500 MG TABLET (FP) PO SCH (21:33)
[2022-07-24] MEDS ORDERED: SODIUM CHLORIDE 500 ML IV STA (03:13)
[2022-07-24] MEDS: ACETAMINOPHEN 1000 MG/100 ML BAG IVPB PRN ×3 (04:21→16:03)
[2022-07-24] MEDS: LORazepam 1 MG TABLET PO SCH ×4 (05:15→22:59)
[2022-07-24 09:46] LABS: EOS % 1.9 % (0-4.5); HEMATOCRIT 21.8 % (35.4-49); HEMOGLOBIN 7.3 GM/dL (11.7-16.9); LYMPH % 26.5 % (8-40); MCH 31.5 pg (25.7-33.7); MCHC 33.7 g/dl (32.0-35.9); MEAN CELL VOLUME 93.5 fl (80-96); MEAN PLT VOLUME 7.2 fl (7.5-11.1); MONO % 3.7 % (3.8-10.2); NEUT % 66.9 % (42.8-82.8); PLATELET COUNT 405 10^3/uL (134-434); RBC 2.33 M/mm3 (4.00-5.60); RDW 16.2 % (11.9-15.9); WHITE BLOOD COUNT 9.2 K/mm3 (4.0-10.0)
[2022-07-24] MEDS: PANTOPRAZOLE SODIUM 40 MG VIAL IVPUSH SCH ×2 (09:54→22:17)
[2022-07-24] MEDS: levETIRAcetam 500 MG TABLET (FP) PO SCH ×2 (09:54→22:16)
[2022-07-24 10:18] LABS: URINE APPEARANCE CLEAR; URINE BILIRUBIN NEGATIVE (NEGATIVE); URINE COLOR YELLOW; URINE GLUCOSE (UA) NEGATIVE (NEGATIVE); URINE KETONE NEGATIVE (NEGATIVE); URINE LEUK ESTERASE NEGATIVE (NEGATIVE); URINE NITRITE NEGATIVE (NEGATIVE); URINE PROTEIN NEGATIVE (NEGATIVE)
[2022-07-24 10:27] LABS: POTASSIUM 4.1 mmol/L (3.5-5.1)
[2022-07-24 10:30] LABS: CALCIUM 8.3 mg/dL (8.5-10.1)
[2022-07-24 10:31] LABS: ALBUMIN 2.5 g/dl (3.4-5.0); BLOOD UREA NITROGEN 18.6 mg/dL (7-18)
[2022-07-24 10:34] LABS: CREATININE 1.3 mg/dL (0.55-1.3)
[2022-07-24] MEDS: OCTREOTIDE ACETATE 200 MCG, OCTREOTIDE ACETATE 1,000 MCG in DEXTROSE 5%-WATER - 496 ML IVPB SCH ×2 (10:35→13:02)
[2022-07-24 10:36] LABS: BILIRUBIN,TOTAL 1.6 mg/dL (0.2-1); TOT PROT 5.6 g/dl (6.4-8.2)
[2022-07-24] MEDS: LACTATED RINGERS SOLUTION 1,000 ML/1,000 ML INFUS.BAG IV SCH ×2 (15:13→23:02)
[2022-07-24] MEDS: oxyCODONE HCL 5 MG TABLET PO PRN (16:02)
[2022-07-25] MEDS: oxyCODONE HCL 5 MG TABLET PO PRN ×4 (00:15→22:19)
[2022-07-25] MEDS ORDERED: oxyCODONE HCL 5 MG TABLET PO ONE (02:17)
[2022-07-25] MEDS: LORazepam 1 MG TABLET PO SCH ×4 (05:01→22:07)
[2022-07-25 07:15] LABS: BASO % 1.1 % (0-2.0); HEMATOCRIT 20.5 % (35.4-49); HEMOGLOBIN 7.4 GM/dL (11.7-16.9); MCH 33.5 pg (25.7-33.7); MCHC 36.1 g/dl (32.0-35.9); MEAN CELL VOLUME 92.8 fl (80-96); MEAN PLT VOLUME 7.5 fl (7.5-11.1); MONO % 6.6 % (3.8-10.2); NEUT % 56.3 % (42.8-82.8); PLATELET COUNT 351 10^3/uL (134-434); RDW 15.6 % (11.9-15.9); WHITE BLOOD COUNT 8.1 K/mm3 (4.0-10.0)
[2022-07-25 07:42] LABS: ALBUMIN 2.5 g/dl (3.4-5.0)
[2022-07-25 07:43] LABS: CALCIUM 8.1 mg/dL (8.5-10.1)
[2022-07-25 07:44] LABS: BLOOD UREA NITROGEN 7.6 mg/dL (7-18); MAGNESIUM 1.6 mg/dL (1.8-2.4)
[2022-07-25 07:45] LABS: CREATININE 0.9 mg/dL (0.55-1.3)
[2022-07-25 07:47] LABS: BILIRUBIN,TOTAL 0.7 mg/dL (0.2-1); TOT PROT 5.6 g/dl (6.4-8.2)
[2022-07-25] MEDS: PANTOPRAZOLE SODIUM 40 MG VIAL IVPUSH SCH ×2 (09:35→22:07)
[2022-07-25] MEDS: LIDOCAINE 5% TOPICAL PATCH TP SCH (09:35)
[2022-07-25] MEDS: levETIRAcetam 500 MG TABLET (FP) PO SCH ×2 (09:35→22:07)
[2022-07-25] MEDS ORDERED: MULTIVITAMINS (DAILY MVI) TABLET (FP) PO SCH (10:00)
[2022-07-25] MEDS ORDERED: MAGNESIUM SULF 50% (8.12 MEQ/2 ML-1 GM VIAL) IVPB ONE (11:00)
[2022-07-25] MEDS: OCTREOTIDE ACETATE 200 MCG, OCTREOTIDE ACETATE 1,000 MCG in DEXTROSE 5%-WATER - 496 ML IVPB SCH (14:23)
[2022-07-25] MEDS: LACTATED RINGERS SOLUTION 1,000 ML/1,000 ML INFUS.BAG IV SCH (14:25)
[2022-07-25] MEDS: LIDOCAINE PATCH REMOVAL MC SCH (22:17)
[2022-07-26] MEDS ORDERED: LORazepam 0.5 MG TABLET PO PRN
[2022-07-26] MEDS: oxyCODONE HCL 5 MG TABLET PO PRN ×3 (04:22→18:29)
[2022-07-26] MEDS: LACTATED RINGERS SOLUTION 1,000 ML/1,000 ML INFUS.BAG IV SCH ×2 (04:51→15:11)
[2022-07-26] MEDS: LORazepam 0.5 MG TABLET PO SCH ×4 (05:34→23:01)
[2022-07-26 09:19] LABS: BASO % 0.6 % (0-2.0); EOS % 2.6 % (0-4.5); HEMATOCRIT 27.4 % (35.4-49); HEMOGLOBIN 9.5 GM/dL (11.7-16.9); LYMPH % 31.9 % (8-40); MCH 32.4 pg (25.7-33.7); MCHC 34.7 g/dl (32.0-35.9); MEAN CELL VOLUME 93.4 fl (80-96); MEAN PLT VOLUME 7.3 fl (7.5-11.1); MONO % 5.6 % (3.8-10.2); NEUT % 59.3 % (42.8-82.8); PLATELET COUNT 388 10^3/uL (134-434); RBC 2.93 M/mm3 (4.00-5.60); RDW 15.2 % (11.9-15.9)
[2022-07-26 09:34] LABS: POTASSIUM 4.4 mmol/L (3.5-5.1)
[2022-07-26 09:46] LABS: CALCIUM 8.2 mg/dL (8.5-10.1)
[2022-07-26 09:47] LABS: ALBUMIN 2.8 g/dl (3.4-5.0); BLOOD UREA NITROGEN 3.6 mg/dL (7-18); MAGNESIUM 1.7 mg/dL (1.8-2.4)
[2022-07-26 09:50] LABS: CREATININE 0.9 mg/dL (0.55-1.3)
[2022-07-26 09:51] LABS: BILIRUBIN,TOTAL 1.5 mg/dL (0.2-1)
[2022-07-26 09:52] LABS: TOT PROT 6.4 g/dl (6.4-8.2)
[2022-07-26] MEDS ORDERED: MAGNESIUM 2GM/50ML STERILE WATER IVPB IVPB ONE (11:00)
[2022-07-26] MEDS: LIDOCAINE 5% TOPICAL PATCH TP SCH (11:24)
[2022-07-26] MEDS: levETIRAcetam 500 MG TABLET (FP) PO SCH ×2 (11:25→21:22)
[2022-07-26] MEDS: PANTOPRAZOLE SODIUM 40 MG VIAL IVPUSH SCH ×2 (11:25→21:22)
[2022-07-26 15:00] LABS: BASO % 1.3 % (0-2.0); EOS % 2.8 % (0-4.5); HEMATOCRIT 26.2 % (35.4-49); HEMOGLOBIN 8.9 GM/dL (11.7-16.9); LYMPH % 29.9 % (8-40); MCH 31.9 pg (25.7-33.7); MCHC 34.1 g/dl (32.0-35.9); MEAN CELL VOLUME 93.7 fl (80-96); MEAN PLT VOLUME 6.4 fl (7.5-11.1); MONO % 7.1 % (3.8-10.2); NEUT % 58.9 % (42.8-82.8); PLATELET COUNT 374 10^3/uL (134-434); RBC 2.79 M/mm3 (4.00-5.60); RDW 14.9 % (11.9-15.9); WHITE BLOOD COUNT 8.5 K/mm3 (4.0-10.0)
[2022-07-26] MEDS: LIDOCAINE PATCH REMOVAL MC SCH (21:27)
[2022-07-27] MEDS: oxyCODONE HCL 5 MG TABLET PO PRN ×2 (00:33→06:37)
[2022-07-27] MEDS ORDERED: LORazepam 0.5 MG TABLET PO ONE (05:00)
[2022-07-27] MEDS: LACTATED RINGERS SOLUTION 1,000 ML/1,000 ML INFUS.BAG IV SCH ×2 (06:30→14:37)
[2022-07-27 06:52] LABS: INR 1.38 (0.83-1.09); PROTHROMBIN TIME (PATIENT) 15.9 SEC (9.7-13.0)
[2022-07-27 07:04] LABS: POTASSIUM 4.2 mmol/L (3.5-5.1)
[2022-07-27 07:08] LABS: CALCIUM 8.1 mg/dL (8.5-10.1)
[2022-07-27 07:09] LABS: ALBUMIN 2.6 g/dl (3.4-5.0); BLOOD UREA NITROGEN 4.6 mg/dL (7-18); MAGNESIUM 1.7 mg/dL (1.8-2.4)
[2022-07-27 07:12] LABS: CREATININE 0.9 mg/dL (0.55-1.3)
[2022-07-27 07:14] LABS: TOT PROT 5.9 g/dl (6.4-8.2)
[2022-07-27] MEDS ORDERED: levETIRAcetam 500 MG/5 ML INJECTION VIAL IVPB ONE (09:25)
[2022-07-27] MEDS: LIDOCAINE 5% TOPICAL PATCH TP SCH (09:48)
[2022-07-27] MEDS: levETIRAcetam 500 MG TABLET (FP) PO SCH (09:48)
[2022-07-27] MEDS: PANTOPRAZOLE SODIUM 40 MG VIAL IVPUSH SCH (09:48)
[2022-07-27] MEDS ORDERED: ceFAZolin SODIUM 1 GM VIAL ONE (12:01)
[2022-07-27] MEDS ORDERED: MAG HYDROX/AL HYDROX/SIMETH 30 ML UNIT-DOSE CUP PO SCH (12:45)
[2022-07-27 12:48] VITALS: RESP 18
[2022-07-27 13:19] VITALS: BP 142/87; PULSE 88; TEMP 97.9
[2022-07-27] MEDS ORDERED: BACITRACIN ZINC 15 GM TUBE TOPICAL OINTMENT TP ONE (13:30)
[2022-07-27] MEDS ORDERED: PANTOPRAZOLE 40 MG TABLET PO SCH (22:00)
== END 2022-07-27 14:51 | disposition home or self-care (01) | DRG 241 ==
LOC: JER 22:07 → JERBED 07-23 02:13 → J8W 07-23 03:03 → J4S 07-23 11:40
PROVIDERS: ADMIT Internal Medicine; ATTEND Nurse Practitioner Family
PROC: 30233N1 Transfusion of Nonautologous Red Blood Cells into Peripheral Vein, Percutaneous Approach (ICD-10-PCS; 2022-07-23)
PROC: 0DB68ZX Excision of Stomach, Via Natural or Artificial Opening Endoscopic, Diagnostic (ICD-10-PCS; principal; 2022-07-27 11:55)
DX: K25.4 Chronic or unspecified gastric ulcer with hemorrhage (principal); R56.9 Unspecified convulsions; K70.30 Alcoholic cirrhosis of liver without ascites; D64.9 Anemia, unspecified; F10.939 Alcohol use, unspecified with withdrawal, unspecified; K62.5 Hemorrhage of anus and rectum; R10.9 Unspecified abdominal pain
CPT/HCPCS: 0241U-QW; 36415; 36430; 36600; 70450-TC; 70551-TC; 71045-TC-FY; 74177-TC; 80048; 80053; 80076; 81003; 82272; 82728; 82803; 82962; 83540; 83550; 83605; 83735; 84100; 84466; 85025; 85027; 85045; 85610; 85730; 86850; 86900; 86901; 86922; 88305-TC; 93005; 93010; 95816; 99285-25; P9038; P9058; Q9967

== ENCOUNTER 2022-07-31 23:19 | Emergency (ER) | payer OTHER ==
[2022-07-31 23:47] VITALS: BP 133/85; PULSE 98; RESP 18; TEMP 98.6; BMI 29.0
[2022-07-31] MEDS ORDERED: ACETAMINOPHEN 1000 MG/100 ML BAG IVPB ONE (23:51)
[2022-07-31] MEDS ORDERED: MAG HYDROX/AL HYDROX/SIMETH 30 ML UNIT-DOSE CUP PO ONE (23:51)
[2022-07-31] MEDS ORDERED: PANTOPRAZOLE SODIUM 40 MG VIAL IVPUSH ONE (23:51)
[2022-07-31] MEDS ORDERED: FAMOTIDINE 20 MG/50 ML IVPB 20 MG/50 ML MG IVPB ONE (23:51)
[2022-08-01] MEDS ORDERED: PANTOPRAZOLE SODIUM 40 MG VIAL ONE (00:22)
[2022-08-01] MEDS ORDERED: FAMOTIDINE 20 MG/50 ML IVPB 20 MG/50 ML MG IVPB ONE (00:22)
[2022-08-01] MEDS ORDERED: ACETAMINOPHEN INJECTION 100 ML IVPB ONE (00:22)
[2022-08-01] MEDS ORDERED: MAG HYDROX/AL HYDROX/SIMETH 30 ML UNIT-DOSE CUP ONE (00:22)
[2022-08-01 01:08] LABS: BASO % 0.8 % (0-2.0); EOS % 2.9 % (0-4.5); HEMATOCRIT 27.7 % (35.4-49); HEMOGLOBIN 9.3 GM/dL (11.7-16.9); LYMPH % 26.7 % (8-40); MCH 31.5 pg (25.7-33.7); MCHC 33.6 g/dl (32.0-35.9); MEAN CELL VOLUME 93.7 fl (80-96); MEAN PLT VOLUME 7.1 fl (7.5-11.1); NEUT % 61.6 % (42.8-82.8); PLATELET COUNT 337 10^3/uL (134-434); RBC 2.96 M/mm3 (4.00-5.60); WHITE BLOOD COUNT 9.4 K/mm3 (4.0-10.0)
[2022-08-01 01:25] LABS: POTASSIUM 3.9 mmol/L (3.5-5.1)
[2022-08-01 01:29] LABS: ALBUMIN 2.8 g/dl (3.4-5.0); BLOOD UREA NITROGEN 5.3 mg/dL (7-18); CALCIUM 8.5 mg/dL (8.5-10.1); MAGNESIUM 1.6 mg/dL (1.8-2.4)
[2022-08-01 01:32] LABS: CREATININE 0.9 mg/dL (0.55-1.3)
[2022-08-01 01:35] LABS: BILIRUBIN,TOTAL 0.5 mg/dL (0.2-1); TOT PROT 6.7 g/dl (6.4-8.2)
[2022-08-01] MEDS: chlordiazePOXIDE HCL 25 MG CAPSULE PO ONE ×2 (01:35→01:54)
[2022-08-01] MEDS ORDERED: chlordiazePOXIDE HCL 25 MG CAPSULE ONE (01:36)
[2022-08-01 01:39] LABS: BILIRUBIN,DIRECT 0.2 mg/dL (0.0-0.2)
[2022-08-01 01:40] LABS: INR 1.28 (0.83-1.09); PROTHROMBIN TIME (PATIENT) 14.8 SEC (9.7-13.0)
[2022-08-01 01:41] LABS: LACTIC ACID 2.2 mmol/L (0.4-2.0)
[2022-08-01] MEDS: SODIUM CHLORIDE 0.9% 500 ML INFUS.BAG IV ONE ×2 (01:55→02:01)
[2022-08-01] MEDS: MAGNESIUM SULF 50% (8.12 MEQ/2 ML-1 GM VIAL) IVPB ONE ×2 (01:55→02:00)
[2022-08-01] MEDS ORDERED: MAGNESIUM SULFATE IN WATER 2 GM/50 ML IVPB IVPB ONE (01:56)
== END 2022-08-01 02:18 | disposition home or self-care (01) ==
LOC: JER 23:19
PROC: 3E033GC Introduction of Other Therapeutic Substance into Peripheral Vein, Percutaneous Approach (ICD-10-PCS; principal; 2022-07-31)
PROC: 3E033GC Introduction of Other Therapeutic Substance into Peripheral Vein, Percutaneous Approach (ICD-10-PCS; 2022-07-31)
PROC: 3E033GC Introduction of Other Therapeutic Substance into Peripheral Vein, Percutaneous Approach (ICD-10-PCS; 2022-07-31)
DX: R10.84 Generalized abdominal pain (principal)
CPT/HCPCS: 36415; 80053; 82248; 83605; 83690; 83735; 85025; 85610; 85730; 86850; 86900; 86901; 93005; 93010; 99285-25

== ENCOUNTER 2022-08-01 19:09 | Emergency (ER) | payer OTHER ==
[2022-08-01 19:21] VITALS: BP 120/77; PULSE 105; RESP 18; TEMP 98.2; BMI 29.0
[2022-08-01 20:28] LABS: BASO % 0.9 % (0-2.0); EOS % 1.7 % (0-4.5); HEMATOCRIT 31.4 % (35.4-49); HEMOGLOBIN 10.4 GM/dL (11.7-16.9); LYMPH % 25.6 % (8-40); MCH 31.2 pg (25.7-33.7); MEAN CELL VOLUME 94.5 fl (80-96); MEAN PLT VOLUME 7.3 fl (7.5-11.1); MONO % 7.2 % (3.8-10.2); NEUT % 64.6 % (42.8-82.8); PLATELET COUNT 366 10^3/uL (134-434); RBC 3.32 M/mm3 (4.00-5.60); RDW 15.3 % (11.9-15.9); WHITE BLOOD COUNT 14.2 K/mm3 (4.0-10.0)
[2022-08-01 20:44] LABS: POTASSIUM 4.4 mmol/L (3.5-5.1)
[2022-08-01 20:46] LABS: CALCIUM 8.6 mg/dL (8.5-10.1)
[2022-08-01 20:48] LABS: ALBUMIN 3.1 g/dl (3.4-5.0); BLOOD UREA NITROGEN 3.9 mg/dL (7-18)
[2022-08-01 20:49] LABS: CREATININE 0.8 mg/dL (0.55-1.3)
[2022-08-01 20:51] LABS: BILIRUBIN,TOTAL 0.6 mg/dL (0.2-1); TOT PROT 7.4 g/dl (6.4-8.2)
[2022-08-01] MEDS ORDERED: PIPERACILLIN/TAZOB 2.25 GM 2.25 GM in DEXTROSE 5%-WATER - 50 ML IVPB ONE (21:19)
[2022-08-01] MEDS ORDERED: SODIUM CHLORIDE 1,000 ML IV SCH (21:30)
[2022-08-01] MEDS ORDERED: PIPERACILLIN/TAZOB 2.25 GM 2.25 GM/50 ML BAG IVPB ONE (21:37)
[2022-08-01 21:38] LABS: ERYTHROCYTE SEDIMENTATION RATE 26 mm/hr (0-10)
== END 2022-08-02 00:39 | disposition home or self-care (01) ==
LOC: JER 19:09
PROC: 3E0333Z Introduction of Anti-inflammatory into Peripheral Vein, Percutaneous Approach (ICD-10-PCS; principal; 2022-08-01)
DX: K52.9 Noninfective gastroenteritis and colitis, unspecified (principal); R10.31 Right lower quadrant pain; R19.03 Right lower quadrant abdominal swelling, mass and lump
CPT/HCPCS: 36415; 74178-TC; 80053; 85025; 85651; 86140; 99285-25; Q9967

== ENCOUNTER 2022-10-12 21:39 | Inpatient (IN) | payer OTHER ==
[2022-10-13 00:29] VITALS: BMI 31.1
[2022-10-13] MEDS ORDERED: IBUPROFEN 400 MG TABLET (FP) PO PRN (01:43)
[2022-10-13] MEDS ORDERED: POLYETHYLENE GLYCOL (HEALTHYLAX) 3350 17 GM PACKET PO PRN (01:43)
[2022-10-13] MEDS ORDERED: ONDANSETRON *ODT* 4 MG TABLET SL PRN (01:43)
[2022-10-13] MEDS ORDERED: ACETAMINOPHEN 325 MG TABLET (FP) PO PRN (01:43)
[2022-10-13] MEDS ORDERED: BENZONATATE 200 MG CAPSULE PO PRN (01:43)
[2022-10-13] MEDS ORDERED: DICYCLOMINE HCL 10 MG CAPSULE PO PRN (01:43)
[2022-10-13] MEDS ORDERED: MAG HYDROX/AL HYDROX/SIMETH 30 ML UNIT-DOSE CUP PO PRN (01:43)
[2022-10-13] MEDS ORDERED: LOPERAMIDE HCL 2 MG CAPSULE PO PRN (01:43)
[2022-10-13] MEDS ORDERED: guaiFENesin 600 MG TABLET.ER (FP) PO PRN (01:43)
[2022-10-13] MEDS ORDERED: BENZOCAINE/MENTHOL (CHLORASEPTIC ) LOZENGE MM PRN (01:43)
[2022-10-13] MEDS ORDERED: MAGNESIUM HYDROX 2400MG/30ML ORAL SUSPENSION 30 ML CUP PO PRN (01:43)
[2022-10-13] MEDS ORDERED: NALOXONE HCL (KLOXXADO) 8 MG SPRAY NS PRN (01:43)
[2022-10-13] MEDS ORDERED: BISMUTH SUBSALICYLATE 524 MG/30 ML PO PRN (01:43)
[2022-10-13] MEDS ORDERED: NALOXONE HCL 0.4 MG/ML VIAL IM PRN (01:43)
[2022-10-13] MEDS ORDERED: methaDONE HCL 10 MG TABLET (FOR DETOX USE ONLY) PO ONE (01:54)
[2022-10-13] MEDS ORDERED: cloNIDine HCL 0.1 MG TABLET PO PRN (01:54)
[2022-10-13] MEDS ORDERED: LORazepam 1 MG TABLET ONE (02:16)
[2022-10-13] MEDS: LORazepam 1 MG TABLET PO PRN ×2 (02:20→14:26)
[2022-10-13] MEDS: IBUPROFEN 600 MG TABLET (FP) PO PRN ×2 (02:23→10:21)
[2022-10-13] MEDS ORDERED: methaDONE HCL 10 MG TABLET (FOR DETOX USE ONLY) ONE (02:29)
[2022-10-13] MEDS: LORazepam 2 MG TABLET PO SCH ×4 (05:46→22:17)
[2022-10-13] MEDS: METHOCARBAMOL 500 MG TABLET PO PRN ×2 (10:22→17:46)
[2022-10-13] MEDS: PRENATAL VITAMINS W/ FOLIC ACID TABLET (FP) PO SCH (10:23)
[2022-10-13] MEDS: LIDOCAINE 5% TOPICAL PATCH TP SCH (14:25)
[2022-10-13] MEDS: PANTOPRAZOLE 40 MG TABLET PO SCH (14:26)
[2022-10-13] MEDS: levETIRAcetam 500 MG TABLET (FP) PO SCH ×2 (14:26→22:18)
[2022-10-13] MEDS ORDERED: THIAMINE HCL 100 MG TABLET (FP) PO SCH (22:00)
[2022-10-13] MEDS ORDERED: LIDOCAINE PATCH REMOVAL MC SCH (22:00)
[2022-10-13] MEDS ORDERED: traZODone HCL 50 MG TABLET (FP) PO SCH (22:00)
[2022-10-13] MEDS ORDERED: MELATONIN 5 MG TABLETS PO SCH (22:00)
[2022-10-14] MEDS: LORazepam 1 MG TABLET PO SCH ×2 (05:43→10:09)
[2022-10-14] MEDS: IBUPROFEN 600 MG TABLET (FP) PO PRN ×2 (05:45→10:48)
[2022-10-14 09:27] VITALS: BP 112/69; PULSE 80; RESP 20; TEMP 99.2
[2022-10-14] MEDS: PANTOPRAZOLE 40 MG TABLET PO SCH (10:09)
[2022-10-14] MEDS: levETIRAcetam 500 MG TABLET (FP) PO SCH (10:09)
[2022-10-14] MEDS: PRENATAL VITAMINS W/ FOLIC ACID TABLET (FP) PO SCH (10:10)
[2022-10-14] MEDS: METHOCARBAMOL 500 MG TABLET PO PRN (10:10)
[2022-10-14] MEDS: LIDOCAINE 5% TOPICAL PATCH TP SCH (10:11)
[2022-10-14 12:00] LABS: POTASSIUM 4.4 mmol/L (3.5-5.1)
[2022-10-14 12:03] LABS: HEMATOCRIT 28.1 % (35.4-49); HEMOGLOBIN 8.8 GM/dL (11.7-16.9); MCHC 31.3 g/dl (32.0-35.9); MEAN CELL VOLUME 76.6 fl (80-96); MEAN PLT VOLUME 8.8 fl (7.5-11.1); PLATELET COUNT 120 10^3/uL (134-434); RBC 3.66 M/mm3 (4.00-5.60); WHITE BLOOD COUNT 9.6 K/mm3 (4.0-10.0)
[2022-10-14 12:09] LABS: ALBUMIN 3.5 g/dl (3.4-5.0)
[2022-10-14 12:12] LABS: CALCIUM 7.9 mg/dL (8.5-10.1)
[2022-10-14 12:13] LABS: BLOOD UREA NITROGEN 8.5 mg/dL (7-18)
[2022-10-14 12:14] LABS: BILIRUBIN,TOTAL 1.4 mg/dL (0.2-1); TOT PROT 7.5 g/dl (6.4-8.2)
[2022-10-15] MEDS ORDERED: LORazepam 0.5 MG TABLET PO PRN
[2022-10-15] MEDS ORDERED: LORazepam 0.5 MG TABLET PO SCH (05:00)
[2022-10-15] MEDS ORDERED: methaDONE HCL 10 MG TABLET (FOR DETOX USE ONLY) PO ONE (10:00)
[2022-10-16] MEDS ORDERED: LORazepam 0.5 MG TABLET PO ONE (05:00)
[2022-10-17] MEDS ORDERED: methaDONE HCL 10 MG TABLET (FOR DETOX USE ONLY) PO ONE (10:00)
== END 2022-10-14 12:53 | disposition left against medical advice (07) | DRG 894 ==
LOC: YASAS 21:39 → Y3N 10-13 02:57
PROVIDERS: ADMIT Allergy & Immunology; ATTEND Surgery
PROC: HZ2ZZZZ Detoxification Services for Substance Abuse Treatment (ICD-10-PCS; principal; 2022-10-13)
DX: F11.23 Opioid dependence with withdrawal (principal); F10.230 Alcohol dependence with withdrawal, uncomplicated; G47.00 Insomnia, unspecified; K70.30 Alcoholic cirrhosis of liver without ascites; Z86.59 Personal history of other mental and behavioral disorders; Z87.891 Personal history of nicotine dependence; Z87.11 Personal history of peptic ulcer disease; Z87.19 Personal history of other diseases of the digestive system
CPT/HCPCS: 36415; 80053; 85027; 86780; 87635; 87811; 93005; 93010

== ENCOUNTER 2022-10-26 14:19 | Inpatient (IN) | payer OTHER ==
[2022-10-26 14:59] VITALS: BMI 31.3
[2022-10-26] MEDS ORDERED: BISMUTH SUBSALICYLATE 524 MG/30 ML PO PRN (16:55)
[2022-10-26] MEDS ORDERED: BENZOCAINE/MENTHOL (CHLORASEPTIC ) LOZENGE MM PRN (16:55)
[2022-10-26] MEDS ORDERED: NICOTINE POLACRILEX 2 MG GUM BUC PRN (16:55)
[2022-10-26] MEDS ORDERED: BENZONATATE 200 MG CAPSULE PO PRN (16:55)
[2022-10-26] MEDS ORDERED: LOPERAMIDE HCL 2 MG CAPSULE PO PRN (16:55)
[2022-10-26] MEDS ORDERED: MAGNESIUM HYDROX 2400MG/30ML ORAL SUSPENSION 30 ML CUP PO PRN (16:55)
[2022-10-26] MEDS ORDERED: POLYETHYLENE GLYCOL (HEALTHYLAX) 3350 17 GM PACKET PO PRN (16:55)
[2022-10-26] MEDS ORDERED: DICYCLOMINE HCL 10 MG CAPSULE PO PRN (16:55)
[2022-10-26] MEDS ORDERED: guaiFENesin 600 MG TABLET.ER (FP) PO PRN (16:55)
[2022-10-26] MEDS ORDERED: MAG HYDROX/AL HYDROX/SIMETH 30 ML UNIT-DOSE CUP PO PRN (16:55)
[2022-10-26] MEDS ORDERED: ONDANSETRON *ODT* 4 MG TABLET SL PRN (16:55)
[2022-10-26] MEDS ORDERED: P-EPHED 60MG/TRIPROLIDI 2.5MG TABLET PO PRN (16:55)
[2022-10-26] MEDS: LORazepam 1 MG TABLET PO PRN (19:00)
[2022-10-26] MEDS: MELATONIN 5 MG TABLETS PO SCH (22:19)
[2022-10-26] MEDS: levETIRAcetam 500 MG TABLET (FP) PO SCH (22:19)
[2022-10-26] MEDS: LORazepam 2 MG TABLET PO SCH (22:20)
[2022-10-27] MEDS: LORazepam 1 MG TABLET PO PRN (02:04)
[2022-10-27] MEDS: IBUPROFEN 400 MG TABLET (FP) PO PRN (02:04)
[2022-10-27] MEDS: LORazepam 2 MG TABLET PO SCH ×4 (05:42→22:27)
[2022-10-27] MEDS: METHOCARBAMOL 500 MG TABLET PO PRN ×2 (09:43→17:28)
[2022-10-27] MEDS ORDERED: PANTOPRAZOLE SOD 40 MG SUSPENSION PACKET PO SCH (10:00)
[2022-10-27] MEDS: levETIRAcetam 500 MG TABLET (FP) PO SCH ×2 (10:16→22:27)
[2022-10-27] MEDS: PANTOPRAZOLE 40 MG TABLET PO SCH (10:16)
[2022-10-27] MEDS: MELATONIN 5 MG TABLETS PO SCH (22:26)
[2022-10-28] MEDS: METHOCARBAMOL 500 MG TABLET PO PRN ×2 (00:08→05:38)
[2022-10-28] MEDS: LORazepam 1 MG TABLET PO SCH ×2 (05:38→10:50)
[2022-10-28] MEDS: IBUPROFEN 400 MG TABLET (FP) PO PRN (05:41)
[2022-10-28 09:09] VITALS: BP 109/62; PULSE 64; RESP 20; TEMP 97.5
[2022-10-28] MEDS: levETIRAcetam 500 MG TABLET (FP) PO SCH (10:49)
[2022-10-28] MEDS: PANTOPRAZOLE 40 MG TABLET PO SCH (10:49)
[2022-10-29] MEDS ORDERED: LORazepam 0.5 MG TABLET PO PRN
[2022-10-29] MEDS ORDERED: LORazepam 0.5 MG TABLET PO SCH (05:00)
[2022-10-30] MEDS ORDERED: LORazepam 0.5 MG TABLET PO ONE (05:00)
== END 2022-10-28 10:33 | disposition home or self-care (01) | DRG 897 ==
LOC: YASAS 14:19 → Y3N 17:37
PROVIDERS: ADMIT Allergy & Immunology; ATTEND Surgery
PROC: HZ2ZZZZ Detoxification Services for Substance Abuse Treatment (ICD-10-PCS; principal; 2022-10-26)
DX: F10.230 Alcohol dependence with withdrawal, uncomplicated (principal); F17.210 Nicotine dependence, cigarettes, uncomplicated; G47.00 Insomnia, unspecified; K70.30 Alcoholic cirrhosis of liver without ascites; Z86.59 Personal history of other mental and behavioral disorders; Z87.11 Personal history of peptic ulcer disease; Z87.891 Personal history of nicotine dependence; Z87.19 Personal history of other diseases of the digestive system; Z56.0 Unemployment, unspecified; Z59.00 Homelessness unspecified
CPT/HCPCS: 87635

== ENCOUNTER 2022-11-05 13:29 | Inpatient (IN) | payer OTHER ==
[2022-11-05 14:49] VITALS: BMI 30.9
[2022-11-05] MEDS ORDERED: chlordiazePOXIDE HCL 25 MG CAPSULE PO PRN (18:51)
[2022-11-05] MEDS ORDERED: BENZOCAINE/MENTHOL (CHLORASEPTIC ) LOZENGE MM PRN (18:55)
[2022-11-05] MEDS ORDERED: IBUPROFEN 400 MG TABLET (FP) PO PRN (18:55)
[2022-11-05] MEDS ORDERED: POLYETHYLENE GLYCOL (HEALTHYLAX) 3350 17 GM PACKET PO PRN (18:55)
[2022-11-05] MEDS ORDERED: guaiFENesin 600 MG TABLET.ER (FP) PO PRN (18:55)
[2022-11-05] MEDS ORDERED: DICYCLOMINE HCL 10 MG CAPSULE PO PRN (18:55)
[2022-11-05] MEDS ORDERED: BENZONATATE 200 MG CAPSULE PO PRN (18:55)
[2022-11-05] MEDS ORDERED: ONDANSETRON *ODT* 4 MG TABLET SL PRN (18:55)
[2022-11-05] MEDS ORDERED: MAGNESIUM HYDROX 2400MG/30ML ORAL SUSPENSION 30 ML CUP PO PRN (18:55)
[2022-11-05] MEDS ORDERED: LOPERAMIDE HCL 2 MG CAPSULE PO PRN (18:55)
[2022-11-05] MEDS ORDERED: BISMUTH SUBSALICYLATE 524 MG/30 ML PO PRN (18:55)
[2022-11-05] MEDS ORDERED: P-EPHED 60MG/TRIPROLIDI 2.5MG TABLET PO PRN (18:55)
[2022-11-05] MEDS ORDERED: MAG HYDROX/AL HYDROX/SIMETH 30 ML UNIT-DOSE CUP PO PRN (18:55)
[2022-11-05] MEDS ORDERED: chlordiazePOXIDE HCL 25 MG CAPSULE PO ONE (19:00)
[2022-11-05] MEDS: METHOCARBAMOL 500 MG TABLET PO PRN (20:06)
[2022-11-05] MEDS: chlordiazePOXIDE HCL 25 MG CAPSULE PO SCH (22:11)
[2022-11-05] MEDS: THIAMINE HCL 100 MG TABLET (FP) PO SCH (22:11)
[2022-11-05] MEDS: MELATONIN 5 MG TABLETS PO SCH (22:11)
[2022-11-05] MEDS: FERROUS SO4 325 MG TABLET (FP) PO SCH (22:11)
[2022-11-05] MEDS: hydrOXYzine PAMOATE 25 MG CAPSULE (FP) PO PRN (22:11)
[2022-11-05] MEDS: levETIRAcetam 500 MG TABLET (FP) PO SCH (22:11)
[2022-11-06] MEDS: METHOCARBAMOL 500 MG TABLET PO PRN ×4 (05:42→23:40)
[2022-11-06] MEDS: chlordiazePOXIDE HCL 25 MG CAPSULE PO SCH ×4 (05:42→22:38)
[2022-11-06] MEDS: THIAMINE HCL 100 MG TABLET (FP) PO SCH ×3 (05:43→22:38)
[2022-11-06] MEDS ORDERED: NICOTINE POLACRILEX 2 MG GUM BUC PRN (08:35)
[2022-11-06 09:29] LABS: ALBUMIN 3.6 g/dl (3.4-5.0)
[2022-11-06 09:31] LABS: BILIRUBIN,DIRECT 0.5 mg/dL (0.0-0.2)
[2022-11-06 09:33] LABS: BILIRUBIN,TOTAL 1.4 mg/dL (0.2-1)
[2022-11-06] MEDS: FERROUS SO4 325 MG TABLET (FP) PO SCH ×2 (10:18→22:38)
[2022-11-06] MEDS: PRENATAL VITAMINS W/ FOLIC ACID TABLET (FP) PO SCH (10:18)
[2022-11-06] MEDS: levETIRAcetam 500 MG TABLET (FP) PO SCH ×2 (10:18→22:38)
[2022-11-06] MEDS ORDERED: QUEtiapine FUMARATE 50 MG TABLET PO PRN (22:00)
[2022-11-06] MEDS: MELATONIN 5 MG TABLETS PO SCH (22:37)
[2022-11-06] MEDS: hydrOXYzine PAMOATE 25 MG CAPSULE (FP) PO PRN (22:37)
[2022-11-07] MEDS: chlordiazePOXIDE HCL 25 MG CAPSULE PO SCH ×2 (05:50→10:02)
[2022-11-07] MEDS: THIAMINE HCL 100 MG TABLET (FP) PO SCH ×2 (05:50→14:53)
[2022-11-07] MEDS: METHOCARBAMOL 500 MG TABLET PO PRN ×2 (05:52→10:48)
[2022-11-07 09:50] VITALS: RESP 16
[2022-11-07] MEDS: PRENATAL VITAMINS W/ FOLIC ACID TABLET (FP) PO SCH (10:01)
[2022-11-07] MEDS: FERROUS SO4 325 MG TABLET (FP) PO SCH (10:02)
[2022-11-07] MEDS: levETIRAcetam 500 MG TABLET (FP) PO SCH (10:02)
[2022-11-07] MEDS: hydrOXYzine PAMOATE 25 MG CAPSULE (FP) PO PRN (10:04)
[2022-11-07 13:08] VITALS: BP 134/89; PULSE 71; TEMP 97.7
[2022-11-08] MEDS ORDERED: chlordiazePOXIDE HCL 10 MG CAPSULE PO PRN
[2022-11-08] MEDS ORDERED: chlordiazePOXIDE HCL 10 MG CAPSULE PO SCH (05:00)
[2022-11-09] MEDS ORDERED: chlordiazePOXIDE HCL 10 MG CAPSULE PO SCH (05:00)
[2022-11-10] MEDS ORDERED: chlordiazePOXIDE HCL 10 MG CAPSULE PO ONE (05:00)
== END 2022-11-07 12:22 | disposition left against medical advice (07) | DRG 894 ==
LOC: YASAS 13:29 → Y3N 19:30
PROVIDERS: ADMIT Allergy & Immunology; ATTEND Surgery
PROC: HZ2ZZZZ Detoxification Services for Substance Abuse Treatment (ICD-10-PCS; principal; 2022-11-05)
DX: F10.230 Alcohol dependence with withdrawal, uncomplicated (principal); F10.282 Alcohol dependence with alcohol-induced sleep disorder; F10.24 Alcohol dependence with alcohol-induced mood disorder; F39 Unspecified mood [affective] disorder; F43.10 Post-traumatic stress disorder, unspecified; G62.9 Polyneuropathy, unspecified; Z87.891 Personal history of nicotine dependence; Z87.19 Personal history of other diseases of the digestive system; Z56.0 Unemployment, unspecified; Z59.00 Homelessness unspecified
CPT/HCPCS: 36415; 80076; 87635; 90832; 90853

== ENCOUNTER 2022-12-16 23:41 | Emergency (ER) | payer OTHER ==
[2022-12-16 23:53] VITALS: BP 134/88; PULSE 82; RESP 20; TEMP 98.1; BMI 30.7
[2022-12-17] MEDS ORDERED: KETOROLAC TROMETHAMINE 30 MG/1 ML VIAL IM ONE (00:43)
[2022-12-17] MEDS ORDERED: KETOROLAC TROMETHAMINE 30 MG/1 ML VIAL ONE (00:59)
[2022-12-17 01:13] LABS: BASO % 0.3 % (0-2.0); EOS % 1.7 % (0-4.5); HEMATOCRIT 37.3 % (35.4-49); HEMOGLOBIN 12.6 GM/dL (11.7-16.9); LYMPH % 22.6 % (8-40); MCH 28.7 pg (25.7-33.7); MCHC 33.8 g/dl (32.0-35.9); MEAN CELL VOLUME 84.9 fl (80-96); MEAN PLT VOLUME 7.7 fl (7.5-11.1); MONO % 8.7 % (3.8-10.2); NEUT % 66.7 % (42.8-82.8); PLATELET COUNT 211 10^3/uL (134-434); RDW 24.8 % (11.9-15.9); WHITE BLOOD COUNT 7.7 K/mm3 (4.0-10.0)
[2022-12-17 01:20] LABS: INR 1.33 (0.83-1.09); PROTHROMBIN TIME (PATIENT) 15.4 SEC (9.7-13.0)
[2022-12-17 01:22] LABS: ACTIVATED PTT 36.2 SECONDS (25.2-36.5)
[2022-12-17 01:36] LABS: POTASSIUM 3.7 mmol/L (3.5-5.1)
[2022-12-17] MEDS ORDERED: chlordiazePOXIDE HCL 25 MG CAPSULE PO ONE (01:38)
[2022-12-17 01:39] LABS: CALCIUM 8.5 mg/dL (8.5-10.1)
[2022-12-17 01:40] LABS: ALBUMIN 3.5 g/dl (3.4-5.0); BLOOD UREA NITROGEN 6.4 mg/dL (7-18)
[2022-12-17 01:42] LABS: CREATININE 0.9 mg/dL (0.55-1.3)
[2022-12-17 01:44] LABS: TOT PROT 7.9 g/dl (6.4-8.2)
[2022-12-17] MEDS ORDERED: chlordiazePOXIDE HCL 25 MG CAPSULE ONE (01:48)
[2022-12-17 06:20] LABS: ANISOCYTOSIS 2+; MACROCYTOSIS 1+; ROULEAU 2+
== END 2022-12-17 02:06 | disposition home or self-care (01) ==
LOC: JER 23:41
PROC: 3E0233Z Introduction of Anti-inflammatory into Muscle, Percutaneous Approach (ICD-10-PCS; principal; 2022-12-17)
DX: R10.11 Right upper quadrant pain (principal); K70.30 Alcoholic cirrhosis of liver without ascites; F10.90 Alcohol use, unspecified, uncomplicated; Y90.9 Presence of alcohol in blood, level not specified
CPT/HCPCS: 36415; 80053; 83690; 85025; 85610; 85730; 93005; 93010; 99284-25

== ENCOUNTER 2023-01-09 15:48 | Inpatient (IN) | payer OTHER ==
[2023-01-09 16:38] VITALS: BMI 27.6
[2023-01-09] MEDS ORDERED: LOPERAMIDE HCL 2 MG CAPSULE PO PRN (18:39)
[2023-01-09] MEDS ORDERED: BENZONATATE 200 MG CAPSULE PO PRN (18:39)
[2023-01-09] MEDS ORDERED: MAGNESIUM HYDROX 2400MG/30ML ORAL SUSPENSION 30 ML CUP PO PRN (18:39)
[2023-01-09] MEDS ORDERED: POLYETHYLENE GLYCOL (HEALTHYLAX) 3350 17 GM PACKET PO PRN (18:39)
[2023-01-09] MEDS ORDERED: ONDANSETRON *ODT* 4 MG TABLET SL PRN (18:39)
[2023-01-09] MEDS ORDERED: BISMUTH SUBSALICYLATE 524 MG/30 ML PO PRN (18:39)
[2023-01-09] MEDS ORDERED: NALOXONE HCL 0.4 MG/ML VIAL IM PRN (18:39)
[2023-01-09] MEDS ORDERED: METHOCARBAMOL 500 MG TABLET PO PRN (18:39)
[2023-01-09] MEDS ORDERED: guaiFENesin 600 MG TABLET.ER (FP) PO PRN (18:39)
[2023-01-09] MEDS ORDERED: ACETAMINOPHEN 325 MG TABLET (FP) PO PRN (18:39)
[2023-01-09] MEDS ORDERED: NALOXONE HCL (KLOXXADO) 8 MG SPRAY NS PRN (18:39)
[2023-01-09] MEDS ORDERED: BENZOCAINE/MENTHOL (CHLORASEPTIC ) LOZENGE MM PRN (18:39)
[2023-01-09] MEDS ORDERED: DICYCLOMINE HCL 10 MG CAPSULE PO PRN (18:39)
[2023-01-09] MEDS ORDERED: IBUPROFEN 400 MG TABLET (FP) PO PRN (18:39)
[2023-01-09] MEDS ORDERED: IBUPROFEN 600 MG TABLET (FP) PO PRN (18:39)
[2023-01-09] MEDS ORDERED: MAG HYDROX/AL HYDROX/SIMETH 30 ML UNIT-DOSE CUP PO PRN (18:39)
[2023-01-09] MEDS ORDERED: LORazepam 1 MG TABLET ONE (19:29)
[2023-01-09] MEDS: LORazepam 1 MG TABLET PO PRN (19:31)
[2023-01-09] MEDS: hydrOXYzine PAMOATE 25 MG CAPSULE (FP) PO PRN (19:50)
[2023-01-09] MEDS ORDERED: MELATONIN 5 MG TABLETS PO SCH (22:00)
[2023-01-09] MEDS ORDERED: THIAMINE HCL 100 MG TABLET (FP) PO SCH (22:00)
[2023-01-09] MEDS: LORazepam 2 MG TABLET PO SCH (22:36)
[2023-01-10] MEDS: LORazepam 1 MG TABLET PO PRN (03:38)
[2023-01-10] MEDS: LORazepam 2 MG TABLET PO SCH (05:45)
[2023-01-10] MEDS: hydrOXYzine PAMOATE 25 MG CAPSULE (FP) PO PRN (08:57)
[2023-01-10 09:10] VITALS: BP 139/100; PULSE 88; RESP 16; TEMP 98.2
[2023-01-10] MEDS ORDERED: diazePAM 5 MG TABLET PO PRN (09:45)
[2023-01-10] MEDS ORDERED: PRENATAL VITAMINS W/ FOLIC ACID TABLET (FP) PO SCH (10:00)
[2023-01-10 10:48] LABS: CHLORIDE 103 mmol/L (98-107); HEMATOCRIT 38.8 % (35.4-49); HEMOGLOBIN 13.1 GM/dL (11.7-16.9); MCH 30.1 pg (25.7-33.7); MCHC 33.8 g/dl (32.0-35.9); MEAN CELL VOLUME 89.1 fl (80-96); MEAN PLT VOLUME 8.2 fl (7.5-11.1); PLATELET COUNT 170 10^3/uL (134-434); POTASSIUM 3.7 mmol/L (3.5-5.1); RBC 4.36 M/mm3 (4.00-5.60); RDW 19.1 % (11.9-15.9); SODIUM 136 mmol/L (136-145); WHITE BLOOD COUNT 6.8 K/mm3 (4.0-10.0)
[2023-01-10 10:57] LABS: ALBUMIN 3.6 g/dl (3.4-5.0); ANION GAP 6 mmol/L (4-13); CALCIUM 8.9 mg/dL (8.5-10.1); CO2 27 mmol/L (21-32)
[2023-01-10 10:59] LABS: BLOOD UREA NITROGEN 7.6 mg/dL (7-18); GLUCOSE,RANDOM 98 mg/dL (74-106); SGOT/AST 205 U/L (15-37)
[2023-01-10 11:00] LABS: BILIRUBIN,TOTAL 1.9 mg/dL (0.2-1); TOT PROT 7.7 g/dl (6.4-8.2)
[2023-01-10] MEDS ORDERED: diazePAM 5 MG TABLET PO SCH (11:00)
[2023-01-10 11:02] LABS: ALK PHOS 195 U/L (45-117); SGPT/ALT 67 U/L (13-61)
[2023-01-11] MEDS ORDERED: LORazepam 1 MG TABLET PO SCH (05:00)
[2023-01-11] MEDS ORDERED: diazePAM 5 MG TABLET PO SCH (06:00)
[2023-01-12] MEDS ORDERED: LORazepam 0.5 MG TABLET PO PRN
[2023-01-12] MEDS ORDERED: LORazepam 0.5 MG TABLET PO SCH (05:00)
[2023-01-12] MEDS ORDERED: diazePAM 5 MG TABLET PO SCH (10:00)
[2023-01-13] MEDS ORDERED: LORazepam 0.5 MG TABLET PO ONE (05:00)
[2023-01-13] MEDS ORDERED: diazePAM 5 MG TABLET PO ONE (06:00)
== END 2023-01-10 10:10 | disposition left against medical advice (07) | DRG 894 ==
LOC: YASAS 15:48 → Y6N 19:35
PROVIDERS: ADMIT Allergy & Immunology; ATTEND Surgery
PROC: HZ2ZZZZ Detoxification Services for Substance Abuse Treatment (ICD-10-PCS; principal; 2023-01-09)
DX: F10.230 Alcohol dependence with withdrawal, uncomplicated (principal); F11.20 Opioid dependence, uncomplicated; F13.20 Sedative, hypnotic or anxiolytic dependence, uncomplicated; F19.282 Other psychoactive substance dependence with psychoactive substance-induced sleep disorder; F19.280 Other psychoactive substance dependence with psychoactive substance-induced anxiety disorder; F17.210 Nicotine dependence, cigarettes, uncomplicated; F19.24 Other psychoactive substance dependence with psychoactive substance-induced mood disorder; F32.9 Major depressive disorder, single episode, unspecified; G62.9 Polyneuropathy, unspecified; K70.30 Alcoholic cirrhosis of liver without ascites; Z86.11 Personal history of tuberculosis
CPT/HCPCS: 36415; 80053; 80307; 85027; 86780; 87635